=== PATIENT | male | born 1950 | race Caucasian/White ===

== ENCOUNTER → 2016-08-29 | Outpatient (CLI) | payer MEDICARE, OTHER ==
[2016-08-29 13:02] LABS: Blood Urea Nitrogen 16 mg/dL (9-20); Non-African American GFR(MDRD) >60 (>60 ml/min/1.73 sqM)
--- NOTE | 2016-08-29 13:33 | CT ---
EXAMINATION TYPE: CT brain w con DATE OF EXAM: 08/29/2016 1:28 PM COMPARISON: NONE INDICATION: headache DLP: 999.8 mGycm, Automated exposure control for dose reduction was used. CONTRAST: [address] of the brain is performed utilizing 3 mm thick sections through the posterior fossa and 3 mm thick sections through the remaining calvarium. Study is performed within 24 hours of arrival to the hosp [facility]. No abnormal hyperdensity is present to suggest an acute intracranial hemorrhage. No mass lesion is evident. No acute infarcts are evident. Ventricles and sulci are appropriate for the patient age. Paranasal sinuses and mastoid air cells within the [id number] are clear. No suspicious enhancement is evident. IMPRESSIONS: 1. No acute intracranial process.
== END | disposition home or self-care (01) ==
LOC: RADCTMAIN 12:21
PROVIDERS: ATTEND Internal Medicine
DX: R51 Headache (principal)
CPT/HCPCS: 82565; 84520; 70460; 36415; Q9967

== ENCOUNTER 2017-05-26 08:52 | Emergency (ER) | payer MEDICARE, OTHER ==
[2017-05-26 09:26] VITALS: TEMP 97.8
[2017-05-26] MEDS ORDERED: HYDROcodone/APAP 10-325MG 1 EACH TAB PO ONE (10:15)
--- NOTE | 2017-05-26 11:11 | XR ---
EXAMINATION TYPE: XR elbow complete RT DATE OF EXAM: 05/26/2017 CLINICAL HISTORY: pain TECHNIQUE: Frontal, lateral and oblique images of the right elbow are obtained. COMPARISON: None. FINDINGS: There is no acute fracture/dislocation evident of the elbow. No abnormal fat pad signs ar e seen. The overlying soft tissue appears unremarkable. IMPRESSION: There is no acute fracture or dislocation of the elbow. ICD 10 NO FRACTURE, INITIAL EVALUATION
--- NOTE | 2017-05-26 11:24 | ED ---
Trauma HPI - General Chief Complaint: Extremity Injury, Upper Stated Complaint: RT ARM PAIN Time Seen by Provider: 05/26/17 10:11 Source: patient Mode of arrival: ambulatory Limitations: no limitations - History of Present Illness Initial Comments: Patient presents with an injury to the right elbow. He states he bumped his elbow. He has no loss of function of the extremity. He has no numbness or tingling in the hands. He has no weakness. He has no chest pain or pressure. He has no shortness of breath or dyspnea. He has no palpitations. - Related Data Home Medications Medication Instructions Recorded Confirmed Escitalopram [Lexapro] 20 mg PO DAILY 12/03/13 05/26/17 Ranitidine HCl [Zantac] 150 mg PO BID 12/03/13 05/26/17 Simvastatin [Zocor] 40 mg PO HS 12/03/13 05/26/17 metFORMIN HCL [Glucophage] 500 mg PO BID 12/03/13 05/26/17 Cyclobenzaprine [Flexeril] 10 mg PO TID 05/26/17 05/26/17 Diazepam [Valium] 5 mg PO HS 05/26/17 05/26/17 Previous Rx's Medication Instructions Recorded Metoprolol Tartrate [Lopressor] 12.5 mg PO BID #30 tab 04/21/14 Allergies Allergy/AdvReac Type Severity Reaction Status Date / Time No Known Allergies Allergy Verified 05/26/17 09:33 Review of Systems ROS Statement: Those systems with pertinent positive or pertinent negative responses have been documented in the HPI. ROS Other: All systems not noted in ROS Statement are negative. Past Medical History Past Medical History: Coronary Artery Disease (CAD), Diabetes Mellitus, GERD/ Reflux, Hyperlipidemia, Musculoskeletal Disorder Additional Past Medical History / Comment(s): MIGRAINES, PAST HX SEVERAL CONCUSIIONS, History of Any Multi-Drug Resistant Organisms: None Reported Past Surgical History: Back Surgery, Heart Catheterization With Stent, Orthopedic Surgery Additional Past Surgical History / Comment(s): left and right rotator cuff, LOWER BACK LASER SX(NERVES BURNED) Past Anesthesia/Blood Transfusion Reactions: No Reported Reaction Date of Last Stent Placement:: unsure Past Psychological History: Depression Smoking Status: Former smoker Past Alcohol Use History: Occasional Past Drug Use History: Marijuana - Past Family History Father Family Medical History: Dementia Additional Family Medical History / Comment(s): AT AGE 78 COMPLICATIONS FROM ALZHIEMERS Mother Family Medical History: Dementia Additional Family Medical History / Comment(s): AT AGE 90'S General Exam Limitations: no limitations General appearance: alert, in no apparent distress Respiratory exam: Absent: respiratory distress Extremities exam: Present: tenderness Back exam: Present: normal inspection Neurological exam: Present: alert, oriented X3, CN II-XII intact Psychiatric exam: Present: normal affect, normal mood Skin exam: Present: warm, dry, intact, normal color. Absent: rash Course Vital Signs 05/26/17 09:24 Temperature 97.8 F Pulse Rate 82 Respiratory 18 Rate Blood Pressure 144/92 O2 Sat by Pulse 97 Oximetry Medical Decision Making - Medical Decision Making Patient presents with an elbow injury. He is neurovascularly intact. X-rays are negative. He is feeling better after pain medication. He is stable for discharge. Disposition Clinical Impression: Elbow pain, right Disposition: HOME SELF-CARE Condition: Good Instructions: Elbow Bursitis (ED) Referrals: Sagar Aldridge MD [Primary Care Provider] - 1-2 days Torsten Turcios MD [Medical Doctor] - 1-2 days
[2017-05-26 11:34] VITALS: BP 162/91; PULSE 76; RESP 16
== END 2017-05-26 11:34 | disposition home or self-care (01) ==
LOC: EC 08:52
DX: M25.521 Pain in right elbow (principal); E11.9 Type 2 diabetes mellitus without complications; K21.9 Gastro-esophageal reflux disease without esophagitis; E78.5 Hyperlipidemia, unspecified; F32.9 Major depressive disorder, single episode, unspecified; Z87.891 Personal history of nicotine dependence; Z79.84 Long term (current) use of oral hypoglycemic drugs; Z79.899 Other long term (current) drug therapy; W22.8XXA Striking against or struck by other objects, initial encounter
CPT/HCPCS: 99283

== ENCOUNTER 2018-05-19 15:59 | Inpatient (IN) | payer MEDICARE, OTHER ==
[2018-05-19 16:28] LABS: Glucose,Whole Blood 136 mg/dL (75-99)
[2018-05-19] MEDS ORDERED: SODIUM CHLORIDE 0.9% 1,000 ML IV STA (16:31)
[2018-05-19] MEDS ORDERED: SODIUM CHLORIDE 0.9% 500 ML 500 ML IV STA (16:31)
--- NOTE | 2018-05-19 16:39 | ED ---
Neuro HPI - General Chief Complaint: Neuro Symptoms/Deficit Stated Complaint: POSS CVA Time Seen by Provider: 05/19/18 16:18 Source: patient, family, RN notes reviewed Mode of arrival: wheelchair Limitations: no limitations - History of Present Illness Is the patient presenting with stroke symptoms?: Yes Initial Comments: This is a 66-year-old male with a history of CVA in the past also history of diabetes who is on no medications who apparently woke up this morning with some difficulty with speech slurred speech. He also states he numbness or tingling to his left upper extremity. His family's been washing his truck today and they thought this was perhaps secondary to his blood sugar being too low though they have not monitored it. He wasn't medication and passes states he is not taking any now is he thought his medication was hurting him he quit taking it. As a complains some vague left-sided chest pain nonspecific in nature and mild does not seem to get any worse or better with movement or positional changes he' s had no nausea vomiting. Additionally he's been having headaches. Again nonspecific is unable to quantify or qualify the pain. No blurry vision no focal weakness to his upper or lower extremities no other symptoms reported no other modifying factors at this time - Related Data Home Medications: Home Medications Medication Instructions Recorded Confirmed No Known Home Medications 05/19/18 05/19/18 Allergies/Adverse Reactions: Allergies Allergy/AdvReac Type Severity Reaction Status Date / Time No Known Allergies Allergy Verified 05/19/18 16:27 Review of Systems ROS Statement: Those systems with pertinent positive or pertinent negative responses have been documented in the HPI. ROS Other: All systems not noted in ROS Statement are negative. General Exam - General Exam Comments Initial Comments: This is a well-developed well-nourished awake alert oriented 3 male who does demonstrate some difficulty with speech Limitations: no limitations General appearance: alert, in no apparent distress Head exam: Present: atraumatic, normocephalic, normal inspection Eye exam: Present: normal appearance, PERRL, EOMI. Absent: scleral icterus, conjunctival injection, periorbital swelling ENT exam: Present: mucous membranes dry Neck exam: Present: normal inspection, tenderness (Some tenderness palpation of the left paraspinous muscles no spinous process tenderness.). Absent: meningismus, lymphadenopathy Respiratory exam: Present: normal lung sounds bilaterally. Absent: respiratory distress, wheezes, rales, rhonchi, stridor, chest wall tenderness Cardiovascular Exam: Present: regular rate, normal rhythm, normal heart sounds. Absent: systolic murmur, diastolic murmur, rubs, gallop, clicks GI/Abdominal exam: Present: soft, normal bowel sounds. Absent: distended, tenderness, guarding, rebound, rigid Extremities exam: Present: normal inspection, full ROM, normal capillary refill , other (Equal principal systems engineer strength bilaterally). Absent: tenderness, pedal edema, joint swelling, calf tenderness Back exam: Present: normal inspection Neurological exam: Present: alert, oriented X3, CN II-XII intact, motor sensory deficit (Some difficulty with speech noted) Psychiatric exam: Present: normal mood, flat affect Skin exam: Present: warm, dry, intact, normal color. Absent: rash Stroke MDM - Lab Data Result diagrams: 05/19/18 16:35 05/19/18 16:35 Lab Results 05/19/18 05/19/18 05/19/18 Range/Units 16:26 16:35 16:35 WBC 10.6 (3.8-10.6) k/uL RBC 5.12 (4.30-5.90) m/uL Hgb 17.0 (13.0-17.5) gm/dL Hct 47.1 (39.0-53.0) % MCV 92.0 (80.0-100.0) fL MCH 33.2 (25.0-35.0) pg MCHC 36.1 (31.0-37.0) g/dL RDW 12.7 (11.5-15.5) % Plt Count 250 (150-450) k/uL Neutrophils % 56 % Lymphocytes % 33 % Monocytes % 6 % Eosinophils % 3 % Basophils % 1 % Neutrophils # 5.9 (1.3-7.7) k/uL Lymphocytes # 3.5 (1.0-4.8) k/uL Monocytes # 0.6 (0-1.0) k/uL Eosinophils # 0.3 (0-0.7) k/uL Basophils # 0.1 (0-0.2) k/uL PT (9.0-12.0) sec INR (<1.2) APTT (22.0-30.0) sec Sodium (137-145) mmol/L Potassium (3.5-5.1) mmol/L Chloride (98-107) mmol/L Carbon Dioxide (22-30) mmol/L Anion Gap mmol/L BUN (9-20) mg/dL Creatinine (0.66-1.25) mg/dL Est GFR (CKD-EPI)AfAm (>60 ml/min/1.73 sqM) Est GFR (CKD-EPI)NonAf (>60 ml/min/1.73 sqM) Glucose (74-99) mg/dL POC Glucose (mg/dL) 136 H (75-99) mg/dL POC Glu Bleach Chlorinator ID Maribel Yan Calcium (8.4-10.2) mg/dL Magnesium (1.6-2.3) mg/dL Total Bilirubin (0.2-1.3) mg/dL AST (17-59) U/L ALT (21-72) U/L Alkaline Phosphatase (38-126) U/L Total Creatine Kinase 98 (55-170) U/L CK-MB (CK-2) 1.1 (0.0-2.4) ng/mL CK-MB (CK-2) Rel Index 1.1 Troponin I <0.012 (0.000-0.034) ng/mL Total Protein (6.3-8.2) g/dL Albumin (3.5-5.0) g/dL Amylase (30-110) U/L Lipase (23-300) U/L Urine Color Urine Appearance (Clear) Urine pH (5.0-8.0) Ur Specific [place] (1.001-1.035) Urine Protein (Negative) Urine Glucose (UA) (Negative) Urine Ketones (Negative) Urine Blood (Negative) Urine Nitrite (Negative) Urine Bilirubin (Negative) Urine Urobilinogen (<2.0) mg/dL Ur Leukocyte Esterase (Negative) Acetone, Qual (Negative) 05/19/18 05/19/18 05/19/18 Range/Units 16:35 16:35 17:37 WBC (3.8-10.6) k/uL RBC (4.30-5.90) m/uL Hgb (13.0-17.5) gm/dL Hct (39.0-53.0) % MCV (80.0-100.0) fL MCH (25.0-35.0) pg MCHC (31.0-37.0) g/dL RDW (11.5-15.5) % Plt Count (150-450) k/uL Neutrophils % % Lymphocytes % % Monocytes % % Eosinophils % % Basophils % % Neutrophils # (1.3-7.7) k/uL Lymphocytes # (1.0-4.8) k/uL Monocytes # (0-1.0) k/uL Eosinophils # (0-0.7) k/uL Basophils # (0-0.2) k/uL PT 9.5 (9.0-12.0) sec INR 1.0 (<1.2) APTT 23.3 (22.0-30.0) sec Sodium 138 (137-145) mmol/L Potassium 4.8 (3.5-5.1) mmol/L Chloride 106 (98-107) mmol/L Carbon Dioxide 23 (22-30) mmol/L Anion Gap 9 mmol/L BUN 12 (9-20) mg/dL Creatinine 0.81 (0.66-1.25) mg/dL Est GFR (CKD-EPI)AfAm >90 (>60 ml/min/1.73 sqM) Est GFR (CKD-EPI)NonAf >90 (>60 ml/min/1.73 sqM) Glucose 122 H (74-99) mg/dL POC Glucose (mg/dL) (75-99) mg/dL POC Glu Bleach Chlorinator ID Calcium 9.8 (8.4-10.2) mg/dL Magnesium 2.0 (1.6-2.3) mg/dL Total Bilirubin 0.6 (0.2-1.3) mg/dL AST 23 (17-59) U/L ALT 28 (21-72) U/L Alkaline Phosphatase 53 (38-126) U/L Total Creatine Kinase (55-170) U/L CK-MB (CK-2) (0.0-2.4) ng/mL CK-MB (CK-2) Rel Index Troponin I (0.000-0.034) ng/mL Total Protein 7.4 (6.3-8.2) g/dL Albumin 4.4 (3.5-5.0) g/dL Amylase 55 (30-110) U/L Lipase 78 (23-300) U/L Urine Color Light Yellow Urine Appearance Clear (Clear) Urine pH 7.5 (5.0-8.0) Ur Specific [place] 1.009 (1.001-1.035) Urine Protein Negative (Negative) Urine Glucose (UA) Negative (Negative) Urine Ketones Negative (Negative) Urine Blood Negative (Negative) Urine Nitrite Negative (Negative) Urine Bilirubin Negative (Negative) Urine Urobilinogen <2.0 (<2.0) mg/dL Ur Leukocyte Esterase Negative (Negative) Acetone, Qual Negative (Negative) - NIH Stroke Scale 1a. Level of Consciousness: (0) alert 1b. LOC Questions: (0) answers correctly 1c. LOC Commands: (0) performs tasks correctly 2. Best Gaze: (0) normal 3. Visual: (0) no visual loss 4. Facial Palsy: (0) normal symmetrical movement 5a. Motor Arm Left: (0) no drift 5b. Motor Arm Right: (0) no drift 6a. Motor Leg Left: (0) no drift 6b. Motor Leg Right: (0) no drift 7. Limb Ataxia: (0) absent 8. Sensory: (0) normal 9. Best Language: (1) mild/moderate aphasia 10. Dysarthria: (0) normal 11. Extinction/Inattention: (0) no abnormality - Thrombolytic Inclusion/Exclusion Thrombolytic Exclusion Criteria: Onset of Symptoms Unknown - Medical Decision Making I did review the EKG shows normal sinus rhythm a 78. Interval 168 QRS duration 106 QT since QTC 370/4:30 left exodeviation old inferior changes. No acute ST- T wave changes. I did reevaluate patient several occasions no changes did discuss case with Dr. Aldridge the patient be admitted with neurological consultation the patient is currently not a candidate for [employer] or intervention. Past Medical History Past Medical History: Coronary Artery Disease (CAD), Diabetes Mellitus, GERD/ Reflux, Hyperlipidemia, Musculoskeletal Disorder Additional Past Medical History / Comment(s): MIGRAINES, PAST HX SEVERAL CONCUSIIONS History of Any Multi-Drug Resistant Organisms: None Reported Past Surgical History: Back Surgery, Heart Catheterization With Stent, Orthopedic Surgery Additional Past Surgical History / Comment(s): left and right rotator cuff, LOWER BACK LASER SX(NERVES BURNED) Past Anesthesia/Blood Transfusion Reactions: No Reported Reaction Date of Last Stent Placement:: unsure Past Psychological History: Depression Smoking Status: Former smoker Past Alcohol Use History: Occasional Past Drug Use History: Marijuana - Past Family History Father Family Medical History: Dementia Additional Family Medical History / Comment(s): AT AGE 78 COMPLICATIONS FROM ALZHIEMERS Mother Family Medical History: Dementia Additional Family Medical History / Comment(s): AT AGE 90'S Course Vital Signs 05/19/18 05/19/18 16:01 17:21 Temperature 97.7 F Pulse Rate 89 76 Respiratory 18 16 Rate Blood Pressure 128/75 125/89 O2 Sat by Pulse 98 96 Oximetry Critical Care Time Critical Care Time: Yes Critical Care Time: 31 minutes of critical care time which includes initial presentation with history physical labs x-rays several reevaluation the patient discussed with the patient and family regarding findings discussed with the main physician admission orders and documentation of the above Disposition Clinical Impression: Cerebrovascular accident Disposition: ADMITTED IP TO THIS [facility] Condition: Stable Referrals: None,Stated [Primary Care Provider] - 1-2 days
[2018-05-19 17:00] LABS: Partial Thromboplastin Time 23.3 sec (22.0-30.0); Prothrombin Time 9.5 sec (9.0-12.0)
[2018-05-19 17:03] LABS: ALT 28 U/L (21-72); AST 23 U/L (17-59); Albumin 4.4 g/dL (3.5-5.0); Alkaline Phosphatase 53 U/L (38-126); Amylase 55 U/L (30-110); Anion Gap 9 mmol/L; Blood Urea Nitrogen 12 mg/dL (9-20); Calcium 9.8 mg/dL (8.4-10.2); Carbon Dioxide 23 mmol/L (22-30); Chloride 106 mmol/L (98-107); Glucose 122 mg/dL (74-99); Lipase 78 U/L (23-300); Potassium 4.8 mmol/L (3.5-5.1); Sodium 138 mmol/L (137-145); Total Bilirubin 0.6 mg/dL (0.2-1.3); Total Protein 7.4 g/dL (6.3-8.2)
[2018-05-19 17:09] LABS: Creatine Kinase 98 U/L (55-170)
--- NOTE | 2018-05-19 17:09 | XR ---
EXAMINATION TYPE: XR chest 2V DATE OF EXAM: 05/19/2018 COMPARISON: Chest x-ray April 20, 2014. HISTORY: Altered mental status and weakness. TECHNIQUE: Frontal and lateral views of the chest are obtained. FINDINGS: There is chronic parenchymal change without suspicious focal air space opacity, pleural ef fusion, or pneumothorax seen. The cardiac silhouette size is stable and within normal limits. The osseous structures are intact. IMPRESSION: Chronic changes without acute pulmonary process. No significant change from prior.
[2018-05-19 17:16] LABS: Basophils # (A) 0.1 k/uL (0-0.2); Basophils % (A) 1 %; Eosinophils # (A) 0.3 k/uL (0-0.7); Eosinophils % (A) 3 %; HCT 47.1 % (39.0-53.0); Lymphocytes # (A) 3.5 k/uL (1.0-4.8); Lymphocytes % (A) 33 %; MCH 33.2 pg (25.0-35.0); MCHC 36.1 g/dL (31.0-37.0); Monocytes # (A) 0.6 k/uL (0-1.0); Monocytes % (A) 6 %; Neutrophils # (A) 5.9 k/uL (1.3-7.7); Neutrophils % (A) 56 %; Platelet Count 250 k/uL (150-450); RBC 5.12 m/uL (4.30-5.90); RDW 12.7 % (11.5-15.5); WBC 10.6 k/uL (3.8-10.6)
--- NOTE | 2018-05-19 17:19 | CT ---
EXAMINATION TYPE: CT brain wo con DATE OF EXAM: 05/19/2018 HISTORY: Neuro deficits per order. Altered mental status. CT DLP: 1020.4 mGycm. Automated Exposure Control for Dose Reduction was Utilized. TECHNIQUE: CT scan of the head is performed without contrast. COMPARISON: CT brain August 29, 2016. MRI brain December 20, 2015. FINDINGS: There is no acute intracranial hemorrhage or midline shift identified. There is diffuse v entricular and sulcal prominence consistent with diffuse age-related cerebral atrophy. There is low- attenuation in the periventricular white matter consistent with chronic small vessel ischemic change. The globes are intact and the visualized sinuses are clear. IMPRESSION: No acute intracranial hemorrhage or midline shift. There is mild to minimal diffuse age -related cerebral atrophy and chronic small vessel ischemic change redemonstrated. No significant thompson nge from prior CT or MRI.
[2018-05-19 17:22] LABS: Creatine Kinase MB 1.1 ng/mL (0.0-2.4); Troponin I <0.012 ng/mL (0.000-0.034)
[2018-05-19 17:45] LABS: Appearance,Urine Clear (Clear); Bilirubin,Urine Negative (Negative); Blood,Urine Negative (Negative); Color,Urine Light Yellow; Glucose,Urine (UA) Negative (Negative); Ketones,Urine Negative (Negative); Leukocyte Esterase,Urine Negative (Negative); Nitrite,Urine Negative (Negative); PH, Urine 7.5 (5.0-8.0); Protein,Urine Negative (Negative); Specific Gravity,Urine 1.009 (1.001-1.035); Urobilinogen,Urine <2.0 mg/dL (<2.0)
[2018-05-19 20:54] LABS: Glucose,Whole Blood 120 mg/dL (75-99)
--- NOTE | 2018-05-19 22:07 | P.CNNES ---
History of Present Illness Consult date: 05/19/18 History of Present Illness: The patient is a 67-year-old right-handed white male who states at 8:30 this morning he developed slurred speech and left arm tingling. He was at a mandaeism function at the time and his daughter called her and reported what happened. They felt that it might of been due to hypoglycemia and they gave him some candy which did not help. He will K got home and he slept for a few hours his symptoms persisted so they brought him to the emergency room. The patient states he is not having the tingling anymore and his slurred speech went away. A CAT scan of the brain in the emergency room which showed small vessel disease. Apparently he has had a stroke in the past but he is not sure what symptoms that consisted of and how long ago it was. Patient has not had a primary care physician for over a year and has not been taking medications despite of being a diabetic and has coronary artery disease hyperlipidemia and GERD. Patient also describes some left chest pain. Review of Systems Constitutional: Denies chills, Denies fever Eyes: denies blurred vision, denies pain Ears, nose, mouth and throat: Denies headache, Denies sore throat Cardiovascular: Denies chest pain, Denies shortness of breath Respiratory: Denies cough Gastrointestinal: Denies abdominal pain, Denies diarrhea, Denies nausea, Denies vomiting Musculoskeletal: Denies myalgias Neurological: Denies numbness, Denies weakness Psychiatric: Denies anxiety, Denies depression Past Medical History Past Medical History: Coronary Artery Disease (CAD), Diabetes Mellitus, GERD/ Reflux, Hyperlipidemia, Musculoskeletal Disorder Additional Past Medical History / Comment(s): MIGRAINES, PAST HX SEVERAL CONCUSIIONS History of Any Multi-Drug Resistant Organisms: None Reported Past Surgical History: Back Surgery, Heart Catheterization With Stent, Orthopedic Surgery Additional Past Surgical History / Comment(s): left and right rotator cuff, LOWER BACK LASER SX(NERVES BURNED) Past Anesthesia/Blood Transfusion Reactions: No Reported Reaction Date of Last Stent Placement:: unsure Past Psychological History: Depression Additional Psychological History / Comment(s): pt is a Smoking Status: Former smoker Past Alcohol Use History: Occasional Additional Past Alcohol Use History / Comment(s): STARTED SMOKEING AT AGE 11- WORKED UP TO 5 [employer], QUIT 1995, 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 Past Drug Use History: Marijuana Additional Drug Use History / Comment(s): states uses marijuana daily since 1968 , LAST USED today (05/19/2018) - Past Family History Father Family Medical History: Dementia Additional Family Medical History / Comment(s): AT AGE 78 COMPLICATIONS FROM ALZHIEMERS Mother Family Medical History: Dementia Additional Family Medical History / Comment(s): AT AGE 90'S Medications and Allergies Home Medications Medication Instructions Recorded Confirmed Type No Known Home Medications 05/19/18 05/19/18 History Allergies Allergy/AdvReac Type Severity Reaction Status Date / Time No Known Allergies Allergy Verified 05/19/18 16:27 Physical Examination - Vital Signs Vital Signs: Vital Signs Temp Pulse Pulse Resp BP BP Pulse Ox 05/19/18 20:00 98.2 F 71 17 135/91 05/19/18 18:51 97.9 F 73 18 129/89 96 05/19/18 17:21 76 16 125/89 96 05/19/18 16:01 97.7 F 89 18 128/75 98 Intake and Output 05/19/18 05/19/18 05/19/18 06:59 14:59 22:59 Other: Weight 108.862 kg - Constitutional General appearance: obese - EENT EENT: PERRL, hearing intact, vision intact - Respiratory Respiratory: lungs clear - Cardiovascular Cardiovascular: regular rate, normal S1, normal S2 - Neurologic Neurologic examination: Mental status: He was awake alert and oriented. His speech was fluent. There was no a aphasia or dysarthria. Cranial nerves II through XII: Grossly intact Motor examination: No focal weakness Sensory examination: Intact to light touch Deep tendon reflexes: 1+ and symmetric Gait: Not tested Results - Laboratory Findings CBC and BMP: 05/19/18 16:35 05/19/18 16:35 Abnormal Lab Findings: Abnormal Labs 05/19/18 05/19/18 05/19/18 16:26 16:35 20:51 Glucose 122 H POC Glucose (mg/dL) 136 H 120 H Assessment and Plan (1) TIA (transient ischemic attack) Current Visit: Yes Status: Acute SNOMED Code(s): 104922070 (2) Chest pain Current Visit: No Status: Acute SNOMED Code(s): 96082733 (3) Noncompliance with medication regimen Current Visit: Yes Status: Acute Code(s): Z91.14 - PATIENT'S OTHER NONCOMPLIANCE WITH MEDICATION REGIMEN SNOMED Code(s): 749293973 Plan: The patient is a 67-year-old man with history of multiple medical problems was not been taking his medications for the past 1 year. He presents with slurred speech and left arm tingling which has resolved. The patient may have had a TIA. His CAT scan of the brain showed small vessel disease. Recommend carotid ultrasound and echocardiogram. Also recommend antiplatelet therapy with aspirin.
[2018-05-19] MEDS: ATORVASTATIN 80 MG TAB PO SCH (22:11)
[2018-05-19] MEDS: INSULIN ASPART 100 UNIT/ML 1 ML 10 ML VIAL SQ SCH (22:11)
[2018-05-19] MEDS: SODIUM CHLORIDE 0.9% 1,000 ML IV SCH (22:13)
[2018-05-19] MEDS: FAMOTIDINE 20 MG TAB PO SCH (23:46)
[2018-05-19 23:51] LABS: Cholesterol 290 mg/dL (<200); HDL Cholesterol 47 mg/dL (40-60); LDL Cholesterol,Calculated 195 mg/dL (0-99); Triglycerides 241 mg/dL (<150)
[2018-05-20 04:12] LABS: Hemoglobin A1C 7.4 % (4.0-6.0)
[2018-05-20] MEDS: SODIUM CHLORIDE 0.9% 1,000 ML IV SCH ×2 (05:48→18:15)
[2018-05-20 06:15] LABS: Glucose,Whole Blood 169 mg/dL (75-99)
[2018-05-20] MEDS: INSULIN ASPART 100 UNIT/ML 1 ML 10 ML VIAL SQ SCH ×4 (06:35→20:54)
[2018-05-20 07:57] LABS: Basophils # (A) 0.1 k/uL (0-0.2); Basophils % (A) 1 %; Eosinophils # (A) 0.4 k/uL (0-0.7); Eosinophils % (A) 5 %; HCT 48.9 % (39.0-53.0); HGB 16.6 gm/dL (13.0-17.5); Lymphocytes # (A) 3.2 k/uL (1.0-4.8); Lymphocytes % (A) 40 %; MCH 32.2 pg (25.0-35.0); MCHC 33.9 g/dL (31.0-37.0); MCV 94.9 fL (80.0-100.0); Monocytes # (A) 0.5 k/uL (0-1.0); Monocytes % (A) 6 %; Neutrophils # (A) 3.6 k/uL (1.3-7.7); Neutrophils % (A) 46 %; Platelet Count 237 k/uL (150-450); RBC 5.16 m/uL (4.30-5.90); RDW 12.9 % (11.5-15.5); WBC 7.9 k/uL (3.8-10.6)
[2018-05-20 08:29] LABS: Anion Gap 7 mmol/L; Blood Urea Nitrogen 12 mg/dL (9-20); Calcium 9.2 mg/dL (8.4-10.2); Carbon Dioxide 20 mmol/L (22-30); Chloride 109 mmol/L (98-107); Glucose 134 mg/dL (74-99); Potassium 4.8 mmol/L (3.5-5.1); Sodium 136 mmol/L (137-145)
[2018-05-20] MEDS: CLOPIDOGREL 75 MG TAB PO SCH (08:59)
--- NOTE | 2018-05-20 09:44 | ECHOF ---
Referral Reason:Thrombus MEASUREMENTS -------- HEIGHT: 167.6 cm WEIGHT: 98.4 kg BP: 125/65 RVIDd: 3.3 cm (< 3.3) IVSd: 1.2 cm (0.6 - 1.1) LVIDd: 4.1 cm (3.9 - 5.3) LVPWd: 1.2 cm (0.6 - 1.1) IVSs: 1.6 cm LVIDs: 3.2 cm LVPWs: 1.7 cm LA Diam: 3.6 cm (2.7 - 3.8) LAESV Index (A-L): 23.98 ml/m Ao Diam: 3.8 cm (2.0 - 3.7) AV Cusp: 0.9 cm (1.5 - 2.6) EPSS: 1.0 cm MV E Phillip: 0.75 m/s MV DecT: 322 ms MV A Phillip: 0.93 m/s MV E/A Ratio: 0.81 AV maxP.38 mmHg AV meanP.71 mmHg AR PHT: 900 ms MV EF SLOPE: 71.90 mm/s (70 - 150) MV EXCURSION: 1.56 cm (> 18.000) FINDINGS -------- Sinus rhythm. This was a technically adequate study. The left ventricular size is normal. There is borderline concentric left ventricular hypertrophy. Overall left ventricular systolic function is normal with, an EF between 55 - 60 %. The right ventricle is mildly enlarged. Normal LA size by volume 22+/-6 ml/m2. The right atrium is normal in size. There is mild aortic valve sclerosis. There is mild aortic regurgitation. There is mild aortic st enosis present. Peak/mean gradient across the Aortic Valve is 17.38mmHg / 8.71mmHg. There is trace mitral regurgitation. The tricuspid valve appears structurally normal. The pulmonic valve was not well visualized. The aortic root is dilated measuring 3.8cm. IVC Not well visulized. There is no pericardial effusion. CONCLUSIONS -------- 1. Sinus rhythm. 2. This was a technically adequate study. 3. The left ventricular size is normal. 4. There is borderline concentric left ventricular hypertrophy. 5. Overall left ventricular systolic function is normal with, an EF between 55 - 60 %. 6. The right ventricle is mildly enlarged. 7. Normal LA size by volume 22+/-6 ml/m2. 8. The right atrium is normal in size. 9. There is mild aortic valve sclerosis. 10. There is mild aortic regurgitation. 11. There is mild aortic stenosis present. 12. Peak/mean gradient across the Aortic Valve is 17.38mmHg / 8.71mmHg. 13. There is trace mitral regurgitation. 14. The tricuspid valve appears structurally normal. 15. The pulmonic valve was not well visualized. 16. The aortic root is dilated measuring 3.8cm. 17. IVC Not well visulized. 18. There is no pericardial effusion. TOOLING SPECIALIST: GENA Eller
--- NOTE | 2018-05-20 10:06 | US ---
EXAMINATION TYPE: US carotid duplex BILAT DATE OF EXAM: 05/19/2018 COMPARISON: NONE CLINICAL HISTORY: Stenosis. Slurred speech. EXAM MEASUREMENTS: RIGHT: Peak Systolic Velocity (PSV) cm/sec ----- Right CCA: 49.3 ----- Right ICA: 76.9 ----- Right ECA: 65.3 ICA/CCA ratio: 1.6 RIGHT: End Diastole cm/sec ----- Right CCA: 14.4 ----- Right ICA: 31.8 ----- Right ECA: 11.5 LEFT: Peak Systolic Velocity (PSV) cm/sec ----- Left CCA: 64.8 ----- Left ICA: 90.3 ----- Left ECA: 85.4 ICA/CCA ratio: 1.4 LEFT: End Diastole cm/sec ----- Left CCA: 17.5 ----- Left ICA: 40.2 ----- Left ECA: 14.4 VERTEBRALS (direction of flow): Right Vertebral: Antegrade Left Vertebral: Antegrade Rhythm: Normal No significant stenosis seen IMPRESSION: 1. No significant hemodynamic stenosis. 2. Intimal thickening and atherosclerotic plaque bilaterally. Criteria for Assigning % of Stenosis / Diameter reduction (Estimation based on the indirect measurements of the internal carotid artery velocities (ICA PSV). 1. Normal (no stenosis)=ICA PSV < 125 cm/s: ratio < 2.0: ICA EDV<40 cm/s. 2. Less than 50% stenosis=ICA PSV < 125 cm/s: ratio < 2.0: ICA EDV<40 cm/s. 3. 50 to 69% stenosis=ICA PSV of 125 to 230 cm/s: ration 2.0 ? 4.0: ICA EDV 40-100 cm/s. 4. Greater than 70% stenosis to near occlusion= ICA PSV > 230 cm/s: ratio > 4.0: ICA EDV > 100 cm/s. 5. Near occlusion= ICA PSV velocities may be low or undetectable: variable ratio and ICA EDV. 6. Total occlusion=unable to detect flow.
--- NOTE | 2018-05-20 10:36 | P.HPIM ---
History of Present Illness H&P Date: 05/20/18 Chief Complaint: Slurred speech and left extremity numbness This is a 67-year-old male who presented to the emergency room with complaints of slurred speech and left extremity numbness. Patient states he has not followed with primary care in quite some time. Patient does state he seen Dr. Aldridge in the past. Patient states that yesterday afternoon he was at [employer] and noticed he was not able to speak clear sentences. Patient's family also noted the changes. Patient also experienced left arm numbness. Patient was brought into the emergency room family members. Patient has no past medical history of coronary artery disease, diabetes mellitus, GERD, hyperlipidemia, depression and smokes marijuana daily. patient states he stopped taking all medications in the past year. Head CT completed showing no acute intracranial hemorrhage or midline shift. There is mild to minimal diffuse age-related cerebral atrophy and chronic small vessel ischemic changes redemonstrated. No significant change from prior CT or MRI. X-ray completed showing chronic changes without acute pulmonary process. Carotid Doppler completed showing no significant hemodynamic stenosis. Intimal thickening and atherosclerotic plaque bilaterally. EEG completed showing normal sinus rhythm. Left axis deviation. Inferior infarct age undetermined. At this time patient's symptoms have resolved. No signs of any no deficits noted. Patient denies chest pain or shortness of breath. Patient denies nausea vomiting diarrhea. Patient denies any urinary burning and frequency. Review of Systems Please refer to HPI otherwise unremarkable Past Medical History Past Medical History: Coronary Artery Disease (CAD), Diabetes Mellitus, GERD/ Reflux, Hyperlipidemia, Musculoskeletal Disorder Additional Past Medical History / Comment(s): MIGRAINES, PAST HX SEVERAL CONCUSIIONS History of Any Multi-Drug Resistant Organisms: None Reported Past Surgical History: Back Surgery, Heart Catheterization With Stent, Orthopedic Surgery Additional Past Surgical History / Comment(s): left and right rotator cuff, LOWER BACK LASER SX(NERVES BURNED) Past Anesthesia/Blood Transfusion Reactions: No Reported Reaction Date of Last Stent Placement:: unsure Past Psychological History: Depression Additional Psychological History / Comment(s): pt is a Smoking Status: Former smoker Past Alcohol Use History: Occasional Additional Past Alcohol Use History / Comment(s): STARTED SMOKEING AT AGE 11- WORKED UP TO [employer], QUIT 1995, 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 Past Drug Use History: Marijuana Additional Drug Use History / Comment(s): states uses marijuana daily since 1969 , LAST USED today (05/19/2018) - Past Family History Father Family Medical History: Dementia Additional Family Medical History / Comment(s): AT AGE 78 COMPLICATIONS FROM ALZHIEMERS Mother Family Medical History: Dementia Additional Family Medical History / Comment(s): AT AGE 90'S Medications and Allergies Home Medications Medication Instructions Recorded Confirmed Type No Known Home Medications 05/19/18 05/19/18 History Allergies Allergy/AdvReac Type Severity Reaction Status Date / Time No Known Allergies Allergy Verified 05/19/18 16:27 Physical Exam Vitals: Vital Signs Temp Pulse Pulse Resp BP BP Pulse Ox 05/20/18 08:00 98.3 F 67 20 132/82 96 05/20/18 07:34 98.3 F 67 20 132/82 96 05/20/18 05:34 68 17 125/65 05/20/18 04:00 70 18 05/20/18 03:34 98.6 F 70 18 114/70 05/20/18 01:34 80 17 135/62 05/19/18 23:36 82 17 05/19/18 23:29 82 17 120/70 05/19/18 21:34 98.5 F 75 17 114/81 05/19/18 20:34 98.5 F 70 18 120/85 05/19/18 20:00 98.2 F 71 17 135/91 05/19/18 19:45 98.2 F 71 17 130/90 95 05/19/18 18:51 97.9 F 73 18 129/89 96 05/19/18 17:21 76 16 125/89 96 05/19/18 16:01 97.7 F 89 18 128/75 98 Intake and Output 05/19/18 05/20/18 05/20/18 22:59 06:59 14:59 Intake Total 300 Balance 300 Intake: Oral 300 Other: # Voids 2 Weight 106.8 kg 98.6 kg Head normocephalic Neck supple Lungs clear to auscultation bilaterally no wheezing or crackles Heart regular rate and rhythm S1-S2, no rub or gallop Abdomen is soft nontender nondistended positive bowel sounds no hepatosplenomegaly Extremities no edema Neuro alert and orientated to 3. No signs of slurred speech or facial droop. Patient is alert and oriented 3. Equal strength throughout all extremities Results CBC & Chem 7: 05/20/18 07:00 05/20/18 07:00 Labs: Abnormal Lab Results - Last 24 Hours (Table) 05/19/18 05/19/18 05/19/18 Range/Units 16:26 16:35 16:35 Sodium (137-145) mmol/L Chloride (98-107) mmol/L Carbon Dioxide (22-30) mmol/L Glucose 122 H (74-99) mg/dL POC Glucose (mg/dL) 136 H (75-99) mg/dL Hemoglobin A1c 7.4 H (4.0-6.0) % Triglycerides (<150) mg/dL Cholesterol (<200) mg/dL LDL Cholesterol, Calc (0-99) mg/dL 05/19/18 05/19/18 05/20/18 Range/Units 16:35 20:51 06:13 Sodium (137-145) mmol/L Chloride (98-107) mmol/L Carbon Dioxide (22-30) mmol/L Glucose (74-99) mg/dL POC Glucose (mg/dL) 120 H 169 H (75-99) mg/dL Hemoglobin A1c (4.0-6.0) % Triglycerides 241 H (<150) mg/dL Cholesterol 290 H (<200) mg/dL LDL Cholesterol, Calc 195 H (0-99) mg/dL 05/20/18 Range/Units 07:00 Sodium 136 L (137-145) mmol/L Chloride 109 H (98-107) mmol/L Carbon Dioxide 20 L (22-30) mmol/L Glucose 134 H (74-99) mg/dL POC Glucose (mg/dL) (75-99) mg/dL Hemoglobin A1c (4.0-6.0) % Triglycerides (<150) mg/dL Cholesterol (<200) mg/dL LDL Cholesterol, Calc (0-99) mg/dL Thrombosis Risk Factor Assmnt - Choose All That Apply Any of the Below Risk Factors Present?: No Each Risk Factor Represents 2 Points: Age 61-74 years Other congenital or acquired thrombophilia - If yes, enter type in comment: No Thrombosis Risk Factor Assessment Total Risk Factor Score: 2 Thrombosis Risk Factor Assessment Level: Low Risk Assessment and Plan Assessment: 1. Slurred speech and left arm numbness likely related to transient ischemic attack. Head CT completed showing no acute intracranial hemorrhage or midline shift. There is mild to minimal diffuse age-related cerebral atrophy and chronic small vessel redemonstrated. No significant change from prior CT or MRI. EKG completed showing normal sinus rhythm left axis deviation. Carotid ultrasound completed showing stenosis intimal thickening and plaque bilaterally. Per Neurology maintain patient on anticoagulant therapy with Plavix and aspirin. 2D Echo completed showing an EF 55-60%. PT/OT consult 2. Noncompliance with medication. Patient states he stopped taking all his meds 1 year ago and stopped seeing his primary care provider 3. History of diabetes mellitus. A1c has been ordered 4. History of hyperlipidemia. Patient started on Lipitor 5. History of coronary artery disease 6. History of daily marijuana use 7. history of depression GI prophylaxis Protonix. DVT prophylaxis Lovenox. AM labs have been ordered Continue physical therapy Time with Patient: Greater than 30 (Greater than 60% of the total time spent in counseling and coordination of care. I performed an examination of the patient and discussed their management with the Nurse Practitioner. I have reviewed the Nurse Practitioner's notes and agree with the documented findings and plan of care)
[2018-05-20 10:58] LABS: Glucose,Whole Blood 166 mg/dL (75-99)
[2018-05-20] MEDS: ASPIRIN 325 MG TAB PO SCH (12:47)
[2018-05-20 17:21] LABS: Glucose,Whole Blood 133 mg/dL (75-99)
[2018-05-20] MEDS: FAMOTIDINE 20 MG TAB PO SCH (20:53)
[2018-05-20] MEDS: ATORVASTATIN 80 MG TAB PO SCH (20:53)
[2018-05-20 20:55] LABS: Glucose,Whole Blood 168 mg/dL (75-99)
[2018-05-21] MEDS: SODIUM CHLORIDE 0.9% 1,000 ML IV SCH ×2 (02:00→09:20)
[2018-05-21 06:18] LABS: Basophils # (A) 0.1 k/uL (0-0.2); Basophils % (A) 1 %; Eosinophils # (A) 0.4 k/uL (0-0.7); Eosinophils % (A) 4 %; HCT 52.2 % (39.0-53.0); HGB 17.2 gm/dL (13.0-17.5); Lymphocytes # (A) 3.3 k/uL (1.0-4.8); Lymphocytes % (A) 34 %; MCH 31.2 pg (25.0-35.0); MCHC 32.9 g/dL (31.0-37.0); MCV 94.7 fL (80.0-100.0); Mean Platelet Volume 6.6; Monocytes # (A) 0.5 k/uL (0-1.0); Monocytes % (A) 6 %; Neutrophils # (A) 5.1 k/uL (1.3-7.7); Neutrophils % (A) 53 %; Platelet Count 254 k/uL (150-450); RBC 5.51 m/uL (4.30-5.90); RDW 12.9 % (11.5-15.5); WBC 9.5 k/uL (3.8-10.6)
[2018-05-21 06:19] LABS: Glucose,Whole Blood 171 mg/dL (75-99)
[2018-05-21] MEDS: INSULIN ASPART 100 UNIT/ML 1 ML 10 ML VIAL SQ SCH ×2 (06:24→12:52)
[2018-05-21 06:45] LABS: ALT 25 U/L (21-72); AST 20 U/L (17-59); Alkaline Phosphatase 60 U/L (38-126); Anion Gap 9 mmol/L; Blood Urea Nitrogen 12 mg/dL (9-20); Calcium 9.4 mg/dL (8.4-10.2); Carbon Dioxide 21 mmol/L (22-30); Chloride 107 mmol/L (98-107); Glucose 164 mg/dL (74-99); Potassium 4.9 mmol/L (3.5-5.1); Sodium 137 mmol/L (137-145); Total Bilirubin 0.9 mg/dL (0.2-1.3); Total Protein 7.2 g/dL (6.3-8.2)
[2018-05-21] MEDS ORDERED: ENOXAPARIN 40 MG/0.4 ML SYRINGE SQ SCH (09:00)
[2018-05-21] MEDS ORDERED: LISINOPRIL 5 MG TAB PO SCH (09:00)
[2018-05-21] MEDS: CLOPIDOGREL 75 MG TAB PO SCH (09:20)
[2018-05-21] MEDS: ASPIRIN 325 MG TAB PO SCH (09:20)
[2018-05-21 09:49] VITALS: RESP 20
[2018-05-21 11:58] LABS: Glucose,Whole Blood 132 mg/dL (75-99)
[2018-05-21 13:20] VITALS: BP 132/84; PULSE 74; TEMP 97.7
--- NOTE | 2018-05-21 13:32 | P.DS ---
Providers Date of admission: 05/19/18 18:38 Expected date of discharge: 05/21/18 Attending physician: Sagar Aldridge Consults: 05/19/18 18:35 Consult Physician Routine Consulting Provider: Adan Givens Consult Reason/Comments: CVA Do you want consulting provider notified?: Yes Primary care physician: Stated None Hospital Course: discharge diagnosis 1. Slurred speech and left arm numbness likely related to transient ischemic attack. Head CT completed showing no acute intracranial hemorrhage or midline shift. There is mild to minimal diffuse age-related cerebral atrophy and chronic small vessel redemonstrated. No significant change from prior CT or MRI. EKG completed showing normal sinus rhythm left axis deviation. Carotid ultrasound completed showing stenosis intimal thickening and plaque bilaterally. Per Neurology maintain patient on anticoagulant therapy with Plavix and aspirin. 2D Echo completed showing an EF 55-60%. PT/OT consult. Discharge upon neurology clearance. Symptoms completely resolved. Patient will be DC'd on Plavix and aspirin. 2. Noncompliance with medication. Patient states he stopped taking all his meds 1 year ago and stopped seeing his primary care provider 3. History of diabetes mellitus. A1c has been ordered. A1c 7.4. Metformin started 4. History of hyperlipidemia. Patient started on Lipitor 5. History of coronary artery disease 6. History of daily marijuana use 7. history of depression Hospital course This is a 67-year-old male who presented to the emergency room with complaints of slurred speech and left extremity numbness. Patient states he has not followed with primary care in quite some time. Patient does state he seen Dr. Aldridge in the past. Patient states that yesterday afternoon he was at [employer] and noticed he was not able to speak clear sentences. Patient's family also noted the changes. Patient also experienced left arm numbness. Patient was brought into the emergency room family members. Patient has no past medical history of coronary artery disease, diabetes mellitus, GERD, hyperlipidemia, depression and smokes marijuana daily. patient states he stopped taking all medications in the past year. Head CT completed showing no acute intracranial hemorrhage or midline shift. There is mild to minimal diffuse age-related cerebral atrophy and chronic small vessel ischemic changes redemonstrated. No significant change from prior CT or MRI. X-ray completed showing chronic changes without acute pulmonary process. Carotid Doppler completed showing no significant hemodynamic stenosis. Intimal thickening and atherosclerotic plaque bilaterally. EKG completed showing normal sinus rhythm. Left axis deviation. Inferior infarct age undetermined. At this time patient's symptoms have resolved. No signs of any no deficits noted. Patient denies chest pain or shortness of breath. Patient denies nausea vomiting diarrhea. Patient denies any urinary burning and frequency. On 05/21/2018 patient is alert and oriented 3. Patient is currently sitting up in chair. Symptoms resolved. Patient ambulating independently. Patient is eager to go home. Patient denies shortness of breath. Patient denies nausea vomiting or diarrhea. Patient denies urinary burning. Patient will be started on Lipitor, Plavix, aspirin and metformin. Patient educated on the importance of compliance with medication and follow up with primary care provider. Awaiting final neurology clearance prior to discharge I performed an examination of the patient and discussed their management with the Nurse Practitioner. I have reviewed the Nurse Practitioner's notes and agree with the documented findings and plan of care Patient Condition at Discharge: Stable Plan - Discharge Summary Discharge Rx Participant: No New Discharge Prescriptions: New Aspirin 81 mg PO DAILY #30 chewable Atorvastatin [Lipitor] 80 mg PO HS #30 tab Clopidogrel [Plavix] 75 mg PO DAILY #30 tab Lisinopril [Zestril] 5 mg PO DAILY #30 tab metFORMIN HCL [Glucophage] 500 mg PO BID-W/MEALS #60 tab Discharge Medication List Aspirin 81 mg PO DAILY #30 chewable 05/21/18 [Rx] Atorvastatin [Lipitor] 80 mg PO HS #30 tab 05/21/18 [Rx] Clopidogrel [Plavix] 75 mg PO DAILY #30 tab 05/21/18 [Rx] Lisinopril [Zestril] 5 mg PO DAILY #30 tab 05/21/18 [Rx] metFORMIN HCL [Glucophage] 500 mg PO BID-W/MEALS #60 tab 05/21/18 [Rx] Follow up Appointment(s)/Referral(s): Fernanda Givens MD [STAFF PHYSICIAN] - 1 Week Sagar Aldridge MD [STAFF PHYSICIAN] - 05/27/18 1:30 pm Patient Instructions/Handouts: Transient Ischemic Attack (DC), Heart Healthy Diet (DC), Cholesterol and Your Health (GEN) Activity/Diet/Wound Care/Special Instructions: Activity as tolerated Diet heart healthy Discharge Disposition: HOME SELF-CARE
[2018-05-21] MEDS ORDERED: metFORMIN 500 MG TAB PO SCH (17:30)
== END 2018-05-21 14:40 | disposition home or self-care (01) | DRG 69 ==
LOC: EC 15:59 → 3SCARD 18:38
PROVIDERS: ADMIT Internal Medicine; ATTEND Internal Medicine
DX: G45.9 Transient cerebral ischemic attack, unspecified (principal); E11.51 Type 2 diabetes mellitus with diabetic peripheral angiopathy without gangrene; I25.10 Atherosclerotic heart disease of native coronary artery without angina pectoris; K21.9 Gastro-esophageal reflux disease without esophagitis; E78.5 Hyperlipidemia, unspecified; I67.9 Cerebrovascular disease, unspecified; G43.909 Migraine, unspecified, not intractable, without status migrainosus; T50.906A Underdosing of unspecified drugs, medicaments and biological substances, initial encounter; Z91.128 Patient's intentional underdosing of medication regimen for other reason; Z95.5 Presence of coronary angioplasty implant and graft; Z87.891 Personal history of nicotine dependence; Z87.820 Personal history of traumatic brain injury; Z86.59 Personal history of other mental and behavioral disorders; Z86.73 Personal history of transient ischemic attack (TIA), and cerebral infarction without residual deficits; Z81.8 Family history of other mental and behavioral disorders
CPT/HCPCS: 36415; 70450; 71046; 80048; 80053; 80061; 81003; 82009; 82150; 82550; 82553; 83036; 83690; 83735; 84484; 85025; 85610; 85730; 93005; 93306; 93880; 96360; 96361; 99291

== ENCOUNTER 2018-06-25 14:05 | Emergency (ER) | payer MEDICARE, OTHER ==
[2018-06-25 14:16] VITALS: BP 125/82; PULSE 93; RESP 20; TEMP 98.2
[2018-06-25] MEDS ORDERED: HYDROcodone/APAP 7.5-325MG 1 EACH TAB PO ONE (15:03)
--- NOTE | 2018-06-25 15:07 | XR ---
EXAMINATION TYPE: XR foot complete LT DATE OF EXAM: 06/25/2018 CLINICAL HISTORY: Left great toe and metatarsal pain after injury TECHNIQUE: Frontal, lateral, and oblique images of the left foot are obtained. COMPARISON: None FINDINGS: There is no acute fracture/dislocation evident in the left foot. The joint spaces in the left foot appear within normal limits other than mild arthropathy of the distal interphalangeal joint s. The overlying soft tissue appears unremarkable. IMPRESSION: There is no acute fracture or dislocation in the left foot.
--- NOTE | 2018-06-25 15:58 | ED ---
General Adult HPI - General Chief complaint: Extremity Injury, Lower Stated complaint: Toe Pain Source: patient, RN notes reviewed, old records reviewed Mode of arrival: ambulatory Limitations: no limitations - History of Present Illness Initial comments: 67-year-old male patient passed history of diabetes presents in ED with injury to left great toe. Patient was moving couch full that, contact his left great toe when he pulled it. Patient states that he felt pain in his MTP joint where make contact with the couch leg. Patient is ambulatory, states he has pain of left great toe with ambulation. Patient denies any other injury. Patient has no other pain in his foot besides his left great toe, no pain ankle. Denies other complaints. Systemic: Pt denies fatigue, myalgia, fever/chills, rash. Pt denies weakness, night sweats, weight loss. Neuro: Pt denies headache, visual disturbances, syncope or pre-syncope. HEENT: Pt denies ocular discharge or irritation, otalgia, rhinorrhea, pharyngitis or notable lymphadenopathy. Cardiopulmonary: Pt denies chest pain, SOB, heart palpitations, dyspnea on exertion. Abdominal/GI: Pt denies abdominal pain, n/v/d. : Pt denies dysuria, burning w/ urination, frequency/urgency. Denies new onset urinary or bowel incontinence. MSK: Pt denies myalgia, loss of strength or function in extremities. Neuro: Pt denies new onset weakness, paresthesias. - Related Data Previous Rx's Medication Instructions Recorded Aspirin 81 mg PO DAILY #30 chewable 05/21/18 Atorvastatin [Lipitor] 80 mg PO HS #30 tab 05/21/18 Clopidogrel [Plavix] 75 mg PO DAILY #30 tab 05/21/18 Lisinopril [Zestril] 5 mg PO DAILY #30 tab 05/21/18 metFORMIN HCL [Glucophage] 500 mg PO BID-W/MEALS #60 tab 05/21/18 Ibuprofen [Motrin] 600 mg PO Q6HR PRN #40 day 06/25/18 Allergies Allergy/AdvReac Type Severity Reaction Status Date / Time No Known Allergies Allergy Verified 06/25/18 14:13 Review of Systems ROS Statement: Those systems with pertinent positive or pertinent negative responses have been documented in the HPI. ROS Other: All systems not noted in ROS Statement are negative. Past Medical History Past Medical History: Coronary Artery Disease (CAD), Diabetes Mellitus, GERD/ Reflux, Hyperlipidemia, Musculoskeletal Disorder Additional Past Medical History / Comment(s): MIGRAINES, PAST HX SEVERAL CONCUSIIONS History of Any Multi-Drug Resistant Organisms: None Reported Past Surgical History: Back Surgery, Heart Catheterization With Stent, Orthopedic Surgery Additional Past Surgical History / Comment(s): left and right rotator cuff, LOWER BACK LASER SX(NERVES BURNED) Past Anesthesia/Blood Transfusion Reactions: No Reported Reaction Date of Last Stent Placement:: unsure Past Psychological History: Depression Smoking Status: Former smoker Past Alcohol Use History: Occasional Past Drug Use History: Marijuana - Past Family History Father Family Medical History: Dementia Additional Family Medical History / Comment(s): AT AGE 78 COMPLICATIONS FROM ALZHIEMERS Mother Family Medical History: Dementia Additional Family Medical History / Comment(s): AT AGE 90'S General Exam - General Exam Comments Initial Comments: Constitutional: NAD, AOX3, Pt has pleasant affect. HEENT: NC/AT, trachea midline, neck supple, no lymphadenopathy. Posterior pharynx non erythematous, without exudates. External ears appear normal, without discharge. Mucous membranes moist. Eyes PERRLA, EOM intact. There is no scleral icterus. No pallor noted. Cardiopulmonary: RRR, no murmurs, rubs or gallops, no JVD noted. Lungs CTAB in anterior and posterior ramírez. No peripheral edema. Abdominal exam: Abdomen soft and non-distended. Abdomen non-tender to palpation in all 4 quadrants. Bowel sounds active in LLQ. No hepatosplenomegaly. Neuro: CN II-XII grossly intact. No nuchal rigidity. MSK: Pain to palpation at the MTP joint in patient's left great toe. Patient has mild ecchymoses at MTP joint. Capillary refill less than 2 seconds on great toe. Radial pulse +2, sensation intact. Patient able wiggle toes. No tenderness to ankle. Patient has normal strength plantar and dorsi flexion, rotation ankle. Patient is ambulatory. No posterior calf tenderness bilaterally , homans sign negative bilaterally. Posterior tibialis and radial pulse +2 bilaterally. Limitations: no limitations Course Vital Signs 06/25/18 14:13 Temperature 98.2 F Pulse Rate 93 Respiratory 20 Rate Blood Pressure 125/82 O2 Sat by Pulse 98 Oximetry Medical Decision Making - Medical Decision Making 67-year-old female patient past history of diabetes presents to ED with osteoskeletal injury to left great toe after my contact with his couch leg. Patient is ambulatory with pain in left great toe. Physical exam did display some tenderness of the MTP joint. Plain film of left foot do not reveal any osseous abnormality, dislocation, acute fracture. Patient pain well-controlled in ED. Patient [id number] to drive patient home. Patient diagnosed with contusion of left great toe. Patient advised that he will likely have pain for approximately 5 days from this injury, however given orthopedic referral if pain continues. Patient given orthopedic walking boot, patient to bear weight as tolerated. Patient also educated on signs and symptoms of infection, patient verbalized understanding. Patient to return to ED if any new signs or symptoms develop including redness, swelling, increased pain, not able to ambulate, discharge, any other new symptoms. Patient follow up with PCP in 1-2 days. Case discussed with Dr. Ruiz. Disposition Clinical Impression: Contusion Disposition: HOME SELF-CARE Condition: Good Instructions: Foot Contusion (ED) Additional Instructions: Patient to adhere to previously discussed treatment plan and will take medication(s) as directed. Patient to follow up with PCP in 1-2 days. Patient to return to ED if symptoms do not improve. Prescriptions: Ibuprofen [Motrin] 600 mg PO Q6HR PRN #40 day PRN Reason: Pain Is patient prescribed a controlled substance at d/c from ED?: No Referrals: None,Stated [Primary Care Provider] - 1-2 days Torsten Turcios MD [Medical Doctor] - 1-2 days Time of Disposition: 15:57
== END 2018-06-25 16:05 | disposition home or self-care (01) ==
LOC: EC 14:05
DX: S90.112A Contusion of left great toe without damage to nail, initial encounter (principal); I25.10 Atherosclerotic heart disease of native coronary artery without angina pectoris; Z87.891 Personal history of nicotine dependence; Z95.1 Presence of aortocoronary bypass graft; W23.0XXA Caught, crushed, jammed, or pinched between moving objects, initial encounter
CPT/HCPCS: 99284

== ENCOUNTER 2018-07-09 06:15 | Observation (INO) | payer MEDICARE, OTHER ==
[2018-07-09 06:22] VITALS: TEMP 97.6
[2018-07-09] MEDS ORDERED: ASPIRIN 81 MG PO STA (06:24)
[2018-07-09 06:51] LABS: Basophils # (A) 0.1 k/uL (0-0.2); Basophils % (A) 1 %; Eosinophils # (A) 0.3 k/uL (0-0.7); Eosinophils % (A) 3 %; HCT 45.2 % (39.0-53.0); HGB 15.2 gm/dL (13.0-17.5); Lymphocytes # (A) 2.4 k/uL (1.0-4.8); Lymphocytes % (A) 24 %; MCH 31.4 pg (25.0-35.0); MCHC 33.6 g/dL (31.0-37.0); MCV 93.5 fL (80.0-100.0); Mean Platelet Volume 6.8; Monocytes # (A) 0.4 k/uL (0-1.0); Monocytes % (A) 3 %; Neutrophils # (A) 6.8 k/uL (1.3-7.7); Neutrophils % (A) 67 %; Platelet Count 257 k/uL (150-450); RBC 4.83 m/uL (4.30-5.90); RDW 12.9 % (11.5-15.5); WBC 10.1 k/uL (3.8-10.6)
[2018-07-09] MEDS ORDERED: NITROGLYCERIN OINT 1 INCH/GM PACKET TOPICAL STA (06:51)
--- NOTE | 2018-07-09 06:51 | ED ---
Chest Pain HPI - General Chief Complaint: Chest Pain Stated Complaint: Chest Pain Time Seen by Provider: 07/09/18 06:24 Source: patient Mode of arrival: wheelchair Limitations: no limitations - History of Present Illness Initial Comments: Jesus Reddy is an obese 67-year-old male with history of hypertension, hyperlipidemia and diabetes who presents the emergency department this morning for evaluation of sudden onset of chest pain that began this morning while watching television. Patient reports he's been having what he describes as light chest pain for couple of days but it was nothing he thought he needed to have evaluated. 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 Patient reports that he didn 't take anything for the chest pain came to the ER for evaluation however now that he has been sitting here relaxing he reports resolution of the chest pain. He is uncertain if the chest pain was worse when he got up to walk or ambulate. He is uncertain of triggers to the chest pain prior to this event of the chest pain which occurred at rest. - Related Data Home Medications Medication Instructions Recorded Confirmed Aspirin 81 mg PO DAILY 07/09/18 07/09/18 Atorvastatin [Lipitor] 80 mg PO HS 07/09/18 07/09/18 Clopidogrel Bisulfate [Plavix] 75 mg PO DAILY 07/09/18 07/09/18 Lisinopril [Zestril] 10 mg PO DAILY 07/09/18 07/09/18 metFORMIN HCL [Glucophage] 500 mg PO BID 07/09/18 07/09/18 Allergies Allergy/AdvReac Type Severity Reaction Status Date / Time No Known Allergies Allergy Verified 07/09/18 08:35 Review of Systems ROS Statement: Those systems with pertinent positive or pertinent negative responses have been documented in the HPI. ROS Other: All systems not noted in ROS Statement are negative. EKG Findings - EKG Comments: EKG Findings:: EKG obtained at 6:29 AM, rate is 84 rhythm is sinus there is left axis deviation, normal intervals, IA 156, QRS 104, QTC is 439. There is a right bundle branch block. ST elevations or depressions no evidence of acute ischemia or infarction. Past Medical History Past Medical History: Coronary Artery Disease (CAD), Diabetes Mellitus, GERD/ Reflux, Hyperlipidemia, Musculoskeletal Disorder Additional Past Medical History / Comment(s): MIGRAINES, PAST HX SEVERAL CONCUSIIONS History of Any Multi-Drug Resistant Organisms: None Reported Past Surgical History: Back Surgery, Heart Catheterization With Stent, Orthopedic Surgery Additional Past Surgical History / Comment(s): left and right rotator cuff, LOWER BACK LASER SX(NERVES BURNED) Past Anesthesia/Blood Transfusion Reactions: No Reported Reaction Date of Last Stent Placement:: unsure Past Psychological History: Depression Smoking Status: Former smoker Past Alcohol Use History: Occasional Past Drug Use History: Marijuana - Past Family History Father Family Medical History: Dementia Additional Family Medical History / Comment(s): AT AGE 78 COMPLICATIONS FROM ALZHIEMERS Mother Family Medical History: Dementia Additional Family Medical History / Comment(s): AT AGE 90'S General Exam - General Exam Comments Initial Comments: Physical Exam GENERAL: Patient is well-developed and well-nourished. Patient is nontoxic and well- hydrated and is in no distress. Unkempt appearance HENT: Normocephalic, Atraumatic. EYES: PERRL, EOMI PULMONARY: Unlabored respirations. No audible rales rhonchi or wheezing was noted. CARDIOVASCULAR: There is a regular rate and rhythm without any murmurs gallops or rubs. ABDOMEN: Soft and nontender with normal bowel sounds. Obese SKIN: Skin is clear with no lesions or rashes and otherwise unremarkable. Skin changes of bilateral lower extremities consistent with venous stasis : Deferred NEUROLOGIC: Patient is alert and oriented x3. Moving all extremities spontaneously MUSCULOSKELETAL: Normal extremities with adequate strength and full range of motion. No lower extremity swelling or edema. No calf tenderness. PSYCHIATRIC: Normal psychiatric evaluation. Odd affect. Limitations: no limitations Limitations: no limitations Course Vital Signs 07/09/18 06:17 Temperature 97.6 F Pulse Rate 94 Respiratory 20 Rate Blood Pressure 133/95 O2 Sat by Pulse 96 Oximetry [facility] was seen and evaluated, history was obtained from the patient This is a elderly gentleman with multiple comorbidities presenting with sudden onset of chest pain which occurred at rest but has improved since onset. Cardiac workup was ordered. EKG with no ischemic changes Chest x-ray unremarkable Initial troponin negative Patient's heart score 5 due to age and risk factors Patient care discussed with Dr. Lebron who accepts the patient and his service with a consult to cardiology Admission orders placed Disposition Clinical Impression: Chest pain Disposition: ADMITTED IP TO THIS [facility] Referrals: None,Stated [Primary Care Provider] - 1-2 days
[2018-07-09 07:11] LABS: INR 0.9 (<1.2); Partial Thromboplastin Time 23.2 sec (22.0-30.0); Prothrombin Time 9.6 sec (9.0-12.0)
--- NOTE | 2018-07-09 07:12 | XR ---
PA + LATERAL CXR: HISTORY: 67-year-old male with chest pain. COMPARISON: 05/19/2018. FINDINGS: Compared to the prior exam, there has been no significant interval change. The lungs remain clear. Heart size is normal and stable. No obvious hilar or mediastinal mass. No pneumothorax or effusion. No obvious acute osseous abnormality; postoperative changes are noted involving the shoulders bilaterally, as before. IMPRESSION: No acute abnormality or significant interval change.
[2018-07-09 07:13] LABS: ALT 22 U/L (21-72); AST 24 U/L (17-59); Albumin 3.7 g/dL (3.5-5.0); Alkaline Phosphatase 53 U/L (38-126); Anion Gap 9 mmol/L; Blood Urea Nitrogen 17 mg/dL (9-20); Calcium 9.1 mg/dL (8.4-10.2); Carbon Dioxide 23 mmol/L (22-30); Chloride 105 mmol/L (98-107); Glucose 316 mg/dL (74-99); Magnesium 1.8 mg/dL (1.6-2.3); Potassium 4.8 mmol/L (3.5-5.1); Sodium 137 mmol/L (137-145); Total Bilirubin 0.6 mg/dL (0.2-1.3); Total Protein 6.5 g/dL (6.3-8.2)
[2018-07-09 07:16] LABS: Creatine Kinase 57 U/L (55-170)
[2018-07-09 07:28] LABS: Creatine Kinase MB 0.6 ng/mL (0.0-2.4); Troponin I <0.012 ng/mL (0.000-0.034)
[2018-07-09] MEDS: NITROGLYCERIN SL TABS 0.4 MG TAB SUBLINGUAL PRN ×2 (08:34→08:41)
[2018-07-09 08:42] VITALS: PULSE 85; RESP 18
[2018-07-09 09:15] VITALS: BP 111/80
[2018-07-09 09:27] LABS: Glucose,Whole Blood 137 mg/dL (75-99)
[2018-07-09] MEDS ORDERED: INSULIN ASPART 100 UNIT/ML 1 ML 10 ML VIAL SQ SCH (12:30)
[2018-07-10] MEDS ORDERED: ASPIRIN 325 MG TAB PO SCH (09:00)
--- NOTE | 2018-07-10 23:50 | HP ---
HISTORY AND PHYSICAL CHIEF COMPLAINT: Chest pain, shortness of breath. HISTORY OF PRESENT ILLNESS: This is the first known admission for this gentleman who presented to the emergency room with chest pain. He has a history of heart disease. He had a stent about 5 years ago. He is also a diabetic and has hypertension and hyperlipidemia and he did not have shortness of breath, nausea, vomiting, diaphoresis or any radiation of the pain. REVIEW OF SYSTEMS: Otherwise unremarkable. He has had no other symptoms. Past medical history, family history, personal and social history is unremarkable and noncontributory. He is currently not taking any medications. He is not allergic to any. The only procedure he has had is a stent. He does not smoke. PHYSICAL EXAM: Blood pressure is 142/87 with a pulse of 66, respirations of 35 and he is afebrile. In general, appeared to be disheveled, in no acute distress. Skin color is normal. Skin is warm, dry. Lymph nodes not enlarged. Head, ears, eyes, nose, mouth, and throat were normal. Chest is clear but he had poor breath sounds with rales at the bases. He had an increased AP diameter. He has some expiratory wheezing. Cardiac exam is normal sinus rhythm and no murmurs or extra sounds. Abdomen is soft, nontender without visceromegaly or masses. Extremities: Normal. Neurologically he is intact. IMPRESSION: 1. Chest pain. 2. History of coronary artery disease. 3. Chronic obstructive pulmonary disease. PLAN: 1. Bed rest. 2. IV fluids. 3. Serial EKGs and enzymes. 4. Possible cardiology consult. MMODL / IJN: [id number] /
== END 2018-07-09 11:24 | disposition left against medical advice (07) ==
LOC: EC 06:15 → 1SOBS 08:24
PROVIDERS: ADMIT Family Medicine; ATTEND Family Medicine
DX: R07.89 Other chest pain (principal); I25.10 Atherosclerotic heart disease of native coronary artery without angina pectoris; J44.9 Chronic obstructive pulmonary disease, unspecified; K21.9 Gastro-esophageal reflux disease without esophagitis; E78.5 Hyperlipidemia, unspecified; E11.9 Type 2 diabetes mellitus without complications; I10 Essential (primary) hypertension; G43.909 Migraine, unspecified, not intractable, without status migrainosus; F32.9 Major depressive disorder, single episode, unspecified; Z79.82 Long term (current) use of aspirin; Z79.02 Long term (current) use of antithrombotics/antiplatelets; Z79.899 Other long term (current) drug therapy; Z79.84 Long term (current) use of oral hypoglycemic drugs; Z87.891 Personal history of nicotine dependence; Z87.820 Personal history of traumatic brain injury; Z95.5 Presence of coronary angioplasty implant and graft; Z82.0 Family history of epilepsy and other diseases of the nervous system
CPT/HCPCS: 99285; 36415; 93005; 83880; 80053; 82550; 82553; 83735; 84484; 85025; 85610; 85730; 71046; G0378

== ENCOUNTER 2019-01-05 16:16 | Emergency (ER) | payer MEDICARE, OTHER ==
[2019-01-05 16:22] VITALS: BP 129/87; PULSE 71; RESP 16; TEMP 98.6
--- NOTE | 2019-01-05 17:11 | ED ---
General Adult HPI - General Chief complaint: Skin/Abscess/Foreign Body Stated complaint: rt index finger infection Time Seen by Provider: 01/05/19 16:43 Source: patient, RN notes reviewed Mode of arrival: ambulatory - History of Present Illness Initial comments: 68-year-old male with a past medical history of NIDDM, hyperlipidemia, hypertension, CAD presents to the emergency department for a chief complaint of infection of right finger. Patient states this is been there for several days. States That it is painful and swollen. Denies fevers or chills. Denies burning or streaking redness up the finger. Denies any pain with movement of the digits of right hand.Patient has no other complaints at this time including shortness of breath, chest pain, abdominal pain, nausea or vomiting, headache, or visual changes. - Related Data Home Medications Medication Instructions Recorded Confirmed Aspirin 81 mg PO DAILY 07/09/18 07/09/18 Atorvastatin [Lipitor] 80 mg PO HS 07/09/18 07/09/18 Clopidogrel Bisulfate [Plavix] 75 mg PO DAILY 07/09/18 07/09/18 Lisinopril [Zestril] 10 mg PO DAILY 07/09/18 07/09/18 metFORMIN HCL [Glucophage] 500 mg PO BID 07/09/18 07/09/18 Previous Rx's Medication Instructions Recorded Cephalexin [Keflex] 500 mg PO Q6H 7 Days cap 01/05/19 Sulfamethox-Tmp 800-160Mg [Bactrim 1 tab PO Q12HR #14 tab 01/05/19 DS 800-160 mg] Allergies Allergy/AdvReac Type Severity Reaction Status Date / Time No Known Allergies Allergy Verified 01/05/19 16:23 Review of Systems ROS Statement: Those systems with pertinent positive or pertinent negative responses have been documented in the HPI. ROS Other: All systems not noted in ROS Statement are negative. Past Medical History Past Medical History: Coronary Artery Disease (CAD), Diabetes Mellitus, GERD/Reflux, Hyperlipidemia, Hypertension, Musculoskeletal Disorder Additional Past Medical History / Comment(s): 05/19/18 Likely a TIA, noncompliance-stopped meds and seeing his PCP for a year, NIDDM type II, chronic low back pain, several concussions. History of Any Multi-Drug Resistant Organisms: None Reported Past Surgical History: Back Surgery, Heart Catheterization With Stent, Orthopedic Surgery, Tonsillectomy Additional Past Surgical History / Comment(s): left and right rotator cuff, LOWER BACK LASER SX(NERVES BURNED), multiple pain procedures on back Past Anesthesia/Blood Transfusion Reactions: No Reported Reaction Date of Last Stent Placement:: 05/23/11 Past Psychological History: Depression Smoking Status: Former smoker - Past Family History Father Family Medical History: Dementia Additional Family Medical History / Comment(s): AT AGE 78 COMPLICATIONS FROM ALZHIEMERS Mother Family Medical History: Dementia Additional Family Medical History / Comment(s): AT AGE 90'S from dementia. General Exam General appearance: alert, in no apparent distress Head exam: Present: atraumatic, normocephalic, normal inspection Eye exam: Present: normal appearance, PERRL, EOMI. Absent: scleral icterus, conjunctival injection, periorbital swelling ENT exam: Present: normal exam, mucous membranes moist Neck exam: Present: normal inspection, full ROM. Absent: tenderness, meningismus, lymphadenopathy Respiratory exam: Present: normal lung sounds bilaterally. Absent: respiratory distress, wheezes, rales, rhonchi, stridor Cardiovascular Exam: Present: regular rate, normal rhythm, normal heart sounds. Absent: systolic murmur, diastolic murmur, rubs, gallop, clicks Extremities exam: Present: full ROM (Full range of motion of the right second digit including the DIP, PIP, MCP joint. No pain with extension or flexion.), tenderness (Generalized tenderness over the dorsal distal phalanx of the right second digit.), normal capillary refill (Capillary refill less than 2 seconds in all digits of the right hand including the second digit, radial pulse 2+.), other (Patient has a 1 cm x 1 cm paronychia noted of the proximal nail fold of the right second finger. No spreading redness or streaking redness. No cellulitic changes.) Course Vital Signs 01/05/19 16:20 Temperature 98.6 F Pulse Rate 71 Respiratory 16 Rate Blood Pressure 129/87 O2 Sat by Pulse 96 Oximetry Procedures - Incision & Drainage Consent Obtained: verbal consent Indication: Paronychia Site: other (Right second finger) Size (cm): 1 Anesthetic Used: lidocaine 1% I&D Cleaning Method: Chloroprep Scalpel Used: #11 I&D Drainage Obtained: Pus (Moderate amount) Patient Tolerated Procedure: well, no complications Medical Decision Making - Medical Decision Making 68-year-old male presents to the emergency department for chief complaint of pa ronychia noted to the right second digit. This has been there for several days. It is about 1 cm x 1 cm noted to the proximal nail fold of the right second digit. No cellulitic changes. No pain with bending the finger or extending the finger. Incision and drainage was completed successfully. Patient will be started on antibiotics. Educated about warm soaks. Educated to return immediately if symptoms are not improving or worsen. Disposition Clinical Impression: Paronychia Disposition: HOME SELF-CARE Condition: Good Instructions (If sedation given, give patient instructions): Paronychia (ED) Additional Instructions: Please take antibiotic as directed. Please perform warm soapy soaks several times daily. If you have any spreading or streaking redness or symptoms worsen return immediately to the emergency department. Otherwise follow-up with your primary care doctor in one to 2 days. Prescriptions: Sulfamethox-Tmp 800-160Mg [Bactrim DS 800-160 mg] 1 tab PO Q12HR #14 tab Cephalexin [Keflex] 500 mg PO Q6H 7 Days cap Is patient prescribed a controlled substance at d/c from ED?: No Referrals: [facility] [Primary Care Provider] - 1-2 days Time of Disposition: 17:09
== END 2019-01-05 17:21 | disposition home or self-care (01) ==
LOC: EC 16:16
DX: L03.011 Cellulitis of right finger (principal); I25.10 Atherosclerotic heart disease of native coronary artery without angina pectoris; E11.9 Type 2 diabetes mellitus without complications; K21.9 Gastro-esophageal reflux disease without esophagitis; E78.5 Hyperlipidemia, unspecified; I10 Essential (primary) hypertension; F32.9 Major depressive disorder, single episode, unspecified; Z87.891 Personal history of nicotine dependence; Z79.82 Long term (current) use of aspirin; Z79.01 Long term (current) use of anticoagulants; Z79.84 Long term (current) use of oral hypoglycemic drugs; Z79.899 Other long term (current) drug therapy
CPT/HCPCS: 10060; 99283

== ENCOUNTER 2019-02-24 17:41 | Emergency (ER) | payer MEDICARE, OTHER ==
[2019-02-24 17:49] VITALS: BP 127/79; PULSE 60; RESP 18; TEMP 98
[2019-02-24] MEDS ORDERED: DIPH,PERTUS(ACELL)TETVAC-LF 0.5 ML VIAL IM ONE (18:18)
[2019-02-24] MEDS ORDERED: LIDOCAINE 1% INJ 10MG/ML (20 ML MDV) SQ ONE (18:19)
[2019-02-24] MEDS ORDERED: SODIUM CHLORIDE 0.9% IRRIG 1,000 ML BTL IRRIGATION ONE (18:20)
--- NOTE | 2019-02-24 18:23 | ED ---
General Adult HPI - General Chief complaint: Extremity Injury, Lower Stated complaint: toe injury Time Seen by Provider: 02/24/19 18:11 Source: patient, RN notes reviewed Mode of arrival: ambulatory Limitations: no limitations - History of Present Illness Initial comments: 68-year-old male presents to the emergency department for a chief complaint of injury to the right great toe. States that yesterday afternoon about 30 hours ago he was carrying a couch into his daughter's house. Patient states he stubbed his toe on this and injured his nail. States that he got the bleeding to stop and soaked it. States he soaked it again this morning. Patient states that today he was leaving the house and the door closed and hit his toe and caused it to bleed again. States he is not up-to-date on tetanus. Denies any other injuries.Patient has no other complaints at this time including shortness of breath, chest pain, abdominal pain, nausea or vomiting, headache, or visual changes. - Related Data Home Medications Medication Instructions Recorded Confirmed Aspirin 81 mg PO DAILY 07/09/18 07/09/18 Atorvastatin [Lipitor] 80 mg PO HS 07/09/18 07/09/18 Clopidogrel Bisulfate [Plavix] 75 mg PO DAILY 07/09/18 07/09/18 Lisinopril [Zestril] 10 mg PO DAILY 07/09/18 07/09/18 metFORMIN HCL [Glucophage] 500 mg PO BID 07/09/18 07/09/18 Previous Rx's Medication Instructions Recorded Cephalexin [Keflex] 500 mg PO Q6H 7 Days cap 01/05/19 Sulfamethox-Tmp 800-160Mg [Bactrim 1 tab PO Q12HR #14 tab 01/05/19 DS 800-160 mg] Cephalexin [Keflex] 500 mg PO Q6HR 5 Days cap 02/24/19 Allergies Allergy/AdvReac Type Severity Reaction Status Date / Time No Known Allergies Allergy Verified 02/24/19 17:47 Review of Systems ROS Statement: Those systems with pertinent positive or pertinent negative responses have been documented in the HPI. ROS Other: All systems not noted in ROS Statement are negative. Past Medical History Past Medical History: Coronary Artery Disease (CAD), Diabetes Mellitus, GERD/Reflux, Hyperlipidemia, Hypertension, Musculoskeletal Disorder Additional Past Medical History / Comment(s): 05/19/18 Likely a TIA, noncompliance-stopped meds and seeing his PCP for a year, NIDDM type II, chronic low back pain, several concussions. History of Any Multi-Drug Resistant Organisms: None Reported Past Surgical History: Back Surgery, Heart Catheterization With Stent, Orthopedic Surgery, Tonsillectomy Additional Past Surgical History / Comment(s): left and right rotator cuff, LOWER BACK LASER SX(NERVES BURNED), multiple pain procedures on back Past Anesthesia/Blood Transfusion Reactions: No Reported Reaction Date of Last Stent Placement:: 05/23/11 Past Psychological History: Depression Smoking Status: Former smoker Past Alcohol Use History: None Reported Past Drug Use History: None Reported - Past Family History Father Family Medical History: Dementia Additional Family Medical History / Comment(s): AT AGE 78 COMPLICATIONS FROM ALZHIEMERS Mother Family Medical History: Dementia Additional Family Medical History / Comment(s): AT AGE 90'S from dementia. General Exam Limitations: no limitations General appearance: alert, in no apparent distress Head exam: Present: atraumatic, normocephalic, normal inspection Eye exam: Present: normal appearance, PERRL. Absent: scleral icterus, conjunctival injection ENT exam: Present: normal exam, mucous membranes moist Neck exam: Present: normal inspection, full ROM. Absent: tenderness, meningismus, lymphadenopathy Respiratory exam: Present: normal lung sounds bilaterally. Absent: respiratory distress, wheezes, rales, rhonchi, stridor Cardiovascular Exam: Present: regular rate, normal rhythm, normal heart sounds. Absent: systolic murmur, diastolic murmur, rubs, gallop, clicks Extremities exam: Present: full ROM (Full range motion of the right great toe.), normal capillary refill (Capillary refill less than 2 seconds, DP pulse 2+.), other (Patient has avulsion of the nail along the medial lateral and distal nail folds. No lacerations to nail bed. No evidence of foreign body. Full range of motion in the right great toe. No evidence of tendon injury. No erythema or drainage, no evidence of infection.) Course Vital Signs 02/24/19 17:46 Temperature 98.0 F Pulse Rate 60 Respiratory 18 Rate Blood Pressure 127/79 O2 Sat by Pulse 97 Oximetry Medical Decision Making - Medical Decision Making 18-year-old male presents for injury to the right great toenail. This occurred 30 hours ago. Patient stubbed his toe on a couch. This caused near avulsion of the nail. Patient again injured his toe today which prompted him to come to the emergency Department. Tetanus was updated. On exam there is avulsion along the medial and lateral nail folds of the nail bed. Nail is completely detached from nail bed. No laceration of the nailbed. X-ray of the right great toe shows soft tissue swelling without fracture or malalignment. Wound was cleaned thoroughly with normal saline and iodine. Dr. Martinez visualized the toe, recommends removing the nail completely. Patient has full range motion of the toe. Sensation is intact. Digital block was performed using 5 mL's of 1% lidocaine after cleansing the area with a ChloraPrep wipe. The nail was then easily removed along the proximal nail fold. Wound was then covered with bacitracin and wrapped with gauze. Again no lacerations of the nail bed. Patient was given Keflex to prevent infection as he is a diabetic. He will follow up with primary care. He will return if he has any worsening symptoms. Disposition Clinical Impression: Nail avulsion of toe Disposition: HOME SELF-CARE Condition: Good Instructions (If sedation given, give patient instructions): Nail Avulsion (ED) Additional Instructions: Please take antibiotic as directed. Keep the wound clean. Follow-up with primary care in 1-2 days. Return to the emergency department if you have any worsening symptoms including signs of infection such as spreading redness streaking redness drainage or fever. Prescriptions: Cephalexin [Keflex] 500 mg PO Q6HR 5 Days cap Is patient prescribed a controlled substance at d/c from ED?: No Referrals: [facility] [Primary Care Provider] - 1-2 days Time of Disposition: 19:30
--- NOTE | 2019-02-24 19:20 | XR ---
PROCEDURE: XR great toe RT - 3V DATE AND TIME: 02/24/2019 6:32 PM CLINICAL INDICATION: PH[facility]; lac, nail avulsion, first digit TECHNIQUE: Department protocol COMPARISON: None FINDINGS: There is soft tissue swelling. No radiopaque foreign body. Scattered mild osteoarthritis ch anges appreciated. There is no fracture or malalignment. IMPRESSION: Soft tissue swelling.
== END 2019-02-24 19:37 | disposition home or self-care (01) ==
LOC: EC 17:41
DX: S91.201A Unspecified open wound of right great toe with damage to nail, initial encounter (principal); I25.10 Atherosclerotic heart disease of native coronary artery without angina pectoris; E11.9 Type 2 diabetes mellitus without complications; E78.5 Hyperlipidemia, unspecified; I10 Essential (primary) hypertension; G89.29 Other chronic pain; Z87.891 Personal history of nicotine dependence; Z79.02 Long term (current) use of antithrombotics/antiplatelets; Z79.82 Long term (current) use of aspirin; Z79.84 Long term (current) use of oral hypoglycemic drugs; Z79.899 Other long term (current) drug therapy; Z95.5 Presence of coronary angioplasty implant and graft; Z23 Encounter for immunization; W22.8XXA Striking against or struck by other objects, initial encounter; Y93.89 Activity, other specified; Y92.009 Unspecified place in unspecified non-institutional (private) residence as the place of occurrence of the external cause
CPT/HCPCS: 73660; 90715; 99283; 11730; 90471; J2001

== ENCOUNTER 2019-02-28 10:16 | Inpatient (IN) | payer MEDICARE, OTHER ==
[2019-02-28] MEDS ORDERED: VANCOMYCIN IV PER PHARMACY 1 EACH MISC MISCELLANE PRN (11:02)
[2019-02-28] MEDS ORDERED: SODIUM CHLORIDE 0.9% 1,000 ML IV STA ×2 (11:02)
--- NOTE | 2019-02-28 11:07 | ED ---
Skin/Abscess/FB HPI - General Chief complaint: Skin/Abscess/Foreign Body Stated complaint: Infection Time Seen by Provider: 02/28/19 10:26 Source: patient, RN notes reviewed, old records reviewed Mode of arrival: ambulatory Limitations: no limitations - History of Present Illness Initial comments: This is a 68-year-old male the ER for evaluation today for evaluation right great toe pain. Patient was seen in right toe injury right toenail injury and h ad removal of right toenail. Over the last 2 days pain is increased he has been on Keflex but redness is increasing from the top swelling of the toe and redness spreading up the foot. Patient has no fevers is a known diabetic. No new trauma to that toe. MD complaint: abscess/boil, discoloration (Increased erythema right great toe) -: days(s) (2) Tetanus Up to Date: no Location: R foot (Great toe) Severity: moderate Severity scale (1-10): 4 Quality: aching Consistency: constant Improves with: none Worsens with: none Context: none Associated symptoms: denies other symptoms Treatments Prior to Arrival: none - Related Data Home Medications Medication Instructions Recorded Confirmed Aspirin 81 mg PO DAILY 07/09/18 02/28/19 metFORMIN HCL [Glucophage] 500 mg PO BID 07/09/18 02/28/19 Atorvastatin [Lipitor] 20 mg PO DAILY 02/28/19 02/28/19 Escitalopram [Lexapro] 20 mg PO DAILY 02/28/19 02/28/19 Isosorbide Mononitrate ER [Imdur] 30 mg PO DAILY 02/28/19 02/28/19 Nitroglycerin Sl Tabs [Nitrostat] 0.4 mg SUBLINGUAL Q5M PRN 02/28/19 02/28/19 Allergies Allergy/AdvReac Type Severity Reaction Status Date / Time No Known Allergies Allergy Verified 02/28/19 10:31 Review of Systems ROS Statement: Those systems with pertinent positive or pertinent negative responses have been documented in the HPI. ROS Other: All systems not noted in ROS Statement are negative. Past Medical History Past Medical History: Coronary Artery Disease (CAD), CVA/TIA, Diabetes Mellitus, GERD/Reflux, Hyperlipidemia, Hypertension, Musculoskeletal Disorder Additional Past Medical History / Comment(s): NIDDM type II, chronic low back pain History of Any Multi-Drug Resistant Organisms: None Reported Past Surgical History: Back Surgery, Heart Catheterization With Stent, Orthopedic Surgery, Tonsillectomy Additional Past Surgical History / Comment(s): left and right rotator cuff, LOWER BACK LASER SX(NERVES BURNED), multiple pain procedures on back Past Anesthesia/Blood Transfusion Reactions: No Reported Reaction Date of Last Stent Placement:: 05/23/11 Past Psychological History: Depression Smoking Status: Former smoker Past Alcohol Use History: None Reported Past Drug Use History: Marijuana - Past Family History Father Family Medical History: Dementia Additional Family Medical History / Comment(s): AT AGE 78 COMPLICATIONS FROM ALZHIEMERS Mother Family Medical History: Dementia Additional Family Medical History / Comment(s): AT AGE 90'S from dementia. General Exam - General Exam Comments Initial Comments: Right great toe erythema missing toenail which was removed, patient does have erythema spreading up leg also has cut on bottom aspect of toe old and healing but does look infected Limitations: no limitations General appearance: alert, in no apparent distress Head exam: Present: atraumatic, normocephalic, normal inspection Eye exam: Present: normal appearance, PERRL, EOMI. Absent: scleral icterus, conjunctival injection, periorbital swelling ENT exam: Present: normal exam, mucous membranes moist Neck exam: Present: normal inspection. Absent: tenderness, meningismus, lymphadenopathy Respiratory exam: Present: normal lung sounds bilaterally. Absent: respiratory distress, wheezes, rales, rhonchi, stridor Cardiovascular Exam: Present: regular rate, normal rhythm, normal heart sounds. Absent: systolic murmur, diastolic murmur, rubs, gallop, clicks GI/Abdominal exam: Present: soft, normal bowel sounds. Absent: distended, tenderness, guarding, rebound, rigid Extremities exam: Present: normal inspection, full ROM, normal capillary refill. Absent: tenderness, pedal edema, joint swelling, calf tenderness Back exam: Present: normal inspection Neurological exam: Present: alert, oriented X3, CN II-XII intact Psychiatric exam: Present: normal affect, normal mood Skin exam: Present: warm, dry, intact, normal color. Absent: rash Course Vital Signs 02/28/19 10:21 Temperature 97.8 F Pulse Rate 63 Respiratory 18 Rate Blood Pressure 106/55 O2 Sat by Pulse 96 Oximetry - Reevaluation(s) Reevaluation #1: 02/28/19 11:43 Medical records reviewed Reevaluation #2: 02/28/19 11:43 Patient has no specific new complaints Medical Decision Making - Medical Decision Making 68 male the ER for evaluation of right great toe infection, patient has 2 sources of infection removed right toenail as well as laceration to bottom of toe which is healed. Patient will be admitted for IV antibiotics secondary to diabetes and felt outpatient treatment as he has been on Keflex for 2 days and had onset of infection - Lab Data Result diagrams: 02/28/19 10:48 02/28/19 10:48 Lab Results 02/28/19 02/28/19 02/28/19 Range/Units 10:48 10:48 10:48 WBC 7.4 (3.8-10.6) k/uL RBC 4.89 (4.30-5.90) m/uL Hgb 16.0 (13.0-17.5) gm/dL Hct 46.7 (39.0-53.0) % MCV 95.6 (80.0-100.0) fL MCH 32.6 (25.0-35.0) pg MCHC 34.1 (31.0-37.0) g/dL RDW 14.6 (11.5-15.5) % Plt Count 222 (150-450) k/uL Neutrophils % 42 % Lymphocytes % 44 % Monocytes % 6 % Eosinophils % 4 % Basophils % 1 % Neutrophils # 3.1 (1.3-7.7) k/uL Lymphocytes # 3.3 (1.0-4.8) k/uL Monocytes # 0.5 (0-1.0) k/uL Eosinophils # 0.3 (0-0.7) k/uL Basophils # 0.1 (0-0.2) k/uL PT (9.0-12.0) sec INR (<1.2) APTT (22.0-30.0) sec Sodium 137 (137-145) mmol/L Potassium 4.7 (3.5-5.1) mmol/L Chloride 106 (98-107) mmol/L Carbon Dioxide 21 L (22-30) mmol/L Anion Gap 10 mmol/L BUN 15 (9-20) mg/dL Creatinine 0.80 (0.66-1.25) mg/dL Est GFR (CKD-EPI)AfAm >90 (>60 ml/min/1.73 sqM) Est GFR (CKD-EPI)NonAf >90 (>60 ml/min/1.73 sqM) Glucose 126 H (74-99) mg/dL Plasma Lactic Acid Akira 1.2 (0.7-2.0) mmol/L Calcium 9.0 (8.4-10.2) mg/dL Phosphorus 3.6 (2.5-4.5) mg/dL Magnesium 2.0 (1.6-2.3) mg/dL Total Bilirubin 0.6 (0.2-1.3) mg/dL AST 17 (17-59) U/L ALT 17 L (21-72) U/L Alkaline Phosphatase 53 (38-126) U/L Total Protein 6.9 (6.3-8.2) g/dL Albumin 4.1 (3.5-5.0) g/dL 02/28/19 Range/Units 10:48 WBC (3.8-10.6) k/uL RBC (4.30-5.90) m/uL Hgb (13.0-17.5) gm/dL Hct (39.0-53.0) % MCV (80.0-100.0) fL MCH (25.0-35.0) pg MCHC (31.0-37.0) g/dL RDW (11.5-15.5) % Plt Count (150-450) k/uL Neutrophils % % Lymphocytes % % Monocytes % % Eosinophils % % Basophils % % Neutrophils # (1.3-7.7) k/uL Lymphocytes # (1.0-4.8) k/uL Monocytes # (0-1.0) k/uL Eosinophils # (0-0.7) k/uL Basophils # (0-0.2) k/uL PT 10.0 (9.0-12.0) sec INR 0.9 (<1.2) APTT 24.8 (22.0-30.0) sec Sodium (137-145) mmol/L Potassium (3.5-5.1) mmol/L Chloride (98-107) mmol/L Carbon Dioxide (22-30) mmol/L Anion Gap mmol/L BUN (9-20) mg/dL Creatinine (0.66-1.25) mg/dL Est GFR (CKD-EPI)AfAm (>60 ml/min/1.73 sqM) Est GFR (CKD-EPI)NonAf (>60 ml/min/1.73 sqM) Glucose (74-99) mg/dL Plasma Lactic Acid Akira (0.7-2.0) mmol/L Calcium (8.4-10.2) mg/dL Phosphorus (2.5-4.5) mg/dL Magnesium (1.6-2.3) mg/dL Total Bilirubin (0.2-1.3) mg/dL AST (17-59) U/L ALT (21-72) U/L Alkaline Phosphatase (38-126) U/L Total Protein (6.3-8.2) g/dL Albumin (3.5-5.0) g/dL - Radiology Data Radiology results: report reviewed (X-ray right foot negative for acute disease), image reviewed Disposition Clinical Impression: Diabetes, Nail avulsion of toe, Cellulitis of great toe, right Disposition: ADMITTED IP TO THIS [facility] Condition: Good Is patient prescribed a controlled substance at d/c from ED?: No Referrals: [facility] [Primary Care Provider] - 1-2 days
[2019-02-28] MEDS ORDERED: VANCOMYCIN 2,000 MG in SODIUM CHLORIDE 0.9% 500 ML 500 ML IVPB STA (11:12)
[2019-02-28 11:17] LABS: Basophils # (A) 0.1 k/uL (0-0.2); Basophils % (A) 1 %; Eosinophils # (A) 0.3 k/uL (0-0.7); Eosinophils % (A) 4 %; HCT 46.7 % (39.0-53.0); Lymphocytes # (A) 3.3 k/uL (1.0-4.8); Lymphocytes % (A) 44 %; MCH 32.6 pg (25.0-35.0); MCHC 34.1 g/dL (31.0-37.0); MCV 95.6 fL (80.0-100.0); Mean Platelet Volume 7.5; Monocytes # (A) 0.5 k/uL (0-1.0); Monocytes % (A) 6 %; Neutrophils # (A) 3.1 k/uL (1.3-7.7); Neutrophils % (A) 42 %; Platelet Count 222 k/uL (150-450); RBC 4.89 m/uL (4.30-5.90); RDW 14.6 % (11.5-15.5); WBC 7.4 k/uL (3.8-10.6)
[2019-02-28 11:28] LABS: ALT 17 U/L (21-72); AST 17 U/L (17-59); African American GFR (CKD) >90 (>60 ml/min/1.73 sqM); Albumin 4.1 g/dL (3.5-5.0); Alkaline Phosphatase 53 U/L (38-126); Anion Gap 10 mmol/L; Blood Urea Nitrogen 15 mg/dL (9-20); Carbon Dioxide 21 mmol/L (22-30); Chloride 106 mmol/L (98-107); Glucose 126 mg/dL (74-99); Non-African American GFR(CKD) >90 (>60 ml/min/1.73 sqM); Phosphorus 3.6 mg/dL (2.5-4.5); Potassium 4.7 mmol/L (3.5-5.1); Sodium 137 mmol/L (137-145); Total Bilirubin 0.6 mg/dL (0.2-1.3); Total Protein 6.9 g/dL (6.3-8.2)
[2019-02-28 11:30] LABS: INR 0.9 (<1.2); Partial Thromboplastin Time 24.8 sec (22.0-30.0)
--- NOTE | 2019-02-28 12:16 | XR ---
EXAMINATION TYPE: XR foot complete RT DATE OF EXAM: 02/28/2019 COMPARISON: Right great toe 02/24/2019 HISTORY: Pain great toe TECHNIQUE: 3 views right foot FINDINGS: Minimal soft tissue swelling over the right great toe may be present. No acute fractures ar e evident within right foot. Joint spaces appear preserved. IMPRESSION: 1. Mild soft tissue swelling diffusely through the right great toe. 2. No suspicious underlying osseous abnormality.
[2019-02-28] MEDS ORDERED: NITROGLYCERIN SL TABS 0.4 MG TAB SUBLINGUAL PRN (14:30)
[2019-02-28] MEDS ORDERED: HYDROmorphone 0.5 MG/0.5 ML SYRINGE IVP PRN (14:32)
[2019-02-28] MEDS ORDERED: HYDROcodone/APAP 5-325MG 1 EACH TAB PO PRN (14:32)
[2019-02-28] MEDS ORDERED: TEMAZEPAM 15 MG CAP PO PRN (14:32)
[2019-02-28] MEDS ORDERED: ALPRAZolam 0.25 MG TAB PO PRN (14:32)
[2019-02-28 14:57] VITALS: BMI 36.3
[2019-02-28 16:45] LABS: Glucose,Whole Blood 176 mg/dL (75-99)
[2019-02-28] MEDS: INSULIN ASPART (NovoLOG) 100 UNIT/ML VIAL SQ SCH ×2 (17:11→20:22)
--- NOTE | 2019-02-28 18:00 | HP ---
HISTORY AND PHYSICAL DATE OF SERVICE: 02/28/2019. CHIEF COMPLAINT: Right great toe pain and infection. HISTORY OF PRESENT ILLNESS: This 68-year-old gentleman with a past medical history of diabetes type 2, history of CAD, history of GERD, hypertension, hyperlipidemia, history of back surgery, CAD/stent being followed by [facility] and as well as [facility] in the outpatient setting. The patient apparently had a couch falling on the right great toe removing the nail and subsequently patient noted pain and swelling and the patient came to [facility] and admitted to the hospital for further evaluation and treatment. The patient had some cardiac history, but currently no chest pain. The troponin is found to be 0.77. The patient admitted for further evaluation and treatment to telemetry. There is no history of fever, rigors or chills. No history of headache, loss of consciousness or seizures. PAST MEDICAL HISTORY: CAD, CVA, diabetes, GERD, hypertension, hyperlipidemia, myocardial infarction, history of CAD/stent, depression. MEDICATIONS ARE: 1. Metformin 500 mg p.o. b.i.d. 2. Nitrostat 0.4 mg p.r.n. 3. Imdur ER 30 mg. 4. Lexapro 20 mg daily. 5. Lipitor 20 mg daily. 6. Aspirin 81 mg daily. ALLERGIES: None. FAMILY HISTORY: History of dementia. SOCIAL HISTORY: Previous history of smoking, and THC. REVIEW OF SYSTEMS: ENT: No diminished vision. No diminished hearing. CARDIOVASCULAR as mentioned earlier. RESPIRATORY: As mentioned earlier. GI no nausea or vomiting or diarrhea. no dysuria or hematuria. Nervous system: No numbness or weakness. ALLERGY: No asthma or hayfever. MUSCULOSKELETAL as mentioned earlier. HEMATOLOGY/ONCOLOGY: No history of anemia. ENDOCRINE: Diabetes. CONSTITUTIONAL: As mentioned earlier. DERMATOLOGY as mentioned earlier. RHEUMATOLOGY: As mentioned earlier. PSYCHIATRIC: As mentioned earlier. PHYSICAL EXAMINATION: The patient is alert and oriented times three. Pulse 76, blood pressure 117/60, respirations 16, temperature 97.8, pulse ox 98% on room air. HEENT: Conjunctivae normal. Oral mucosa moist. NECK is no jugular venous distention. No carotid bruit. No lymph node enlargement. CARDIOVASCULAR systems: S1, S2 muffled. RESPIRATIONS: Breath sounds diminished in the bases. No rhonchi. No crackles. ABDOMEN: Soft, nontender. No mass palpable. LEGS: No edema. No swelling. NERVOUS SYSTEM: Higher functions as mentioned earlier. Moves all 4 limbs. No focal motor or sensory deficits. Lymphatics: No lymph nodes palpable in the neck, axillae or groin. SKIN: Right great toe infection. JOINTS: No active deforming arthropathy. Examination of the leg, right great toe tender and also some erythema, swelling also present. No fluctuation elicited. LABS: CBC within normal limits. Sodium 137, potassium 4.7. Creatinine noted. Otherwise x- ray foot shows mild soft tissue swelling of the right great toe. No suspicion for underlying osseous abnormality. ASSESSMENT: 1. Right big toe infection cellulitis status post injury. 2. Troponin 0.0772, indeterminate. Rule out acute non ST segment elevation myocardial infarction. 3. History of coronary artery disease. 4. History of cerebrovascular accident, transient ischemic attack. 5. Diabetes mellitus type 2. 6. Gastroesophageal reflux disease. 7. Hypertension. 8. History of coronary artery disease, stent. 9. History of low back pain, degenerative joint disease. 10.History of depression. 11.History of THC. RECOMMENDATIONS AND DISCUSSION: In this 68-year-old gentleman who presented with multiple medical issues, at this time, I will initiate broad-spectrum IV antibiotics. Infectious Disease evaluation. Resume the home medication. Monitor blood sugars closely. I would also recommend a 2D echo with Doppler and cardiology consultation for evaluation of the elevated troponin even though the patient is asymptomatic at this time. Overall prognosis guarded because of the multiple complex medical issues. Further recommendations to follow. MMODL / IJN: [id number] /
[2019-02-28] MEDS: metFORMIN 500 MG TAB PO SCH (20:22)
[2019-02-28] MEDS: HEPARIN SODIUM,PORCINE 5,000 UNIT/ML 1 ML VIAL SQ SCH (20:22)
[2019-02-28 20:23] LABS: Glucose,Whole Blood 94 mg/dL (75-99)
[2019-02-28] MEDS: VANCOMYCIN 2,000 MG in SODIUM CHLORIDE 0.9% 500 ML 500 ML IVPB SCH (22:41)
[2019-03-01] MEDS: INSULIN ASPART (NovoLOG) 100 UNIT/ML VIAL SQ SCH ×4 (06:28→20:43)
[2019-03-01] MEDS: PANTOPRAZOLE 40 MG TABLET PO SCH (06:29)
[2019-03-01 06:40] LABS: Glucose,Whole Blood 144 mg/dL (75-99)
[2019-03-01 06:48] LABS: Basophils # (A) 0.1 k/uL (0-0.2); Basophils % (A) 1 %; Eosinophils # (A) 0.4 k/uL (0-0.7); Eosinophils % (A) 5 %; HCT 47.4 % (39.0-53.0); HGB 15.9 gm/dL (13.0-17.5); Lymphocytes # (A) 2.8 k/uL (1.0-4.8); Lymphocytes % (A) 39 %; MCH 32.3 pg (25.0-35.0); MCHC 33.6 g/dL (31.0-37.0); Mean Platelet Volume 7.1; Monocytes # (A) 0.4 k/uL (0-1.0); Monocytes % (A) 6 %; Neutrophils # (A) 3.2 k/uL (1.3-7.7); Neutrophils % (A) 46 %; Platelet Count 221 k/uL (150-450); RBC 4.93 m/uL (4.30-5.90); RDW 12.9 % (11.5-15.5); WBC 7.1 k/uL (3.8-10.6)
[2019-03-01 07:10] LABS: African American GFR (CKD) >90 (>60 ml/min/1.73 sqM); Anion Gap 7 mmol/L; Blood Urea Nitrogen 15 mg/dL (9-20); Calcium 8.3 mg/dL (8.4-10.2); Carbon Dioxide 23 mmol/L (22-30); Chloride 109 mmol/L (98-107); Glucose 132 mg/dL (74-99); Non-African American GFR(CKD) 88 (>60 ml/min/1.73 sqM); Potassium 5.1 mmol/L (3.5-5.1); Sodium 139 mmol/L (137-145)
--- NOTE | 2019-03-01 08:11 | P.CRDCN ---
History of Present Illness Consult date: 03/01/19 Chief complaint: Right toe pain History of present illness: This is a pleasant 68-year-old gentleman with a past medical history significant for coronary artery disease and prior stenting, the details on that are unknown, the stenting was performed in 2010, diabetes, hypertension, and dyslipidemia, presented to the emergency room complaining of pain in the right toe. Currently the patient does not follow with any transition social worker. He was moving a couch out of his portion when the edge of the couch fell on the right toenail. It pulled the right toenail out completely. The patient after that was experiencing severe pain. For the last few days, he was experiencing beside the pain swollen, redness, and edema in the right toenail and because of that he decided to come to the emergency room. He does not remember having any symptoms of syncope or presyncope, no symptoms of chest pain or chest discomfort, shortness of breath, dizziness, heart racing or heart fluttering. We involved in the care of the patient because her troponin was checked and came in to be abnormal. We only have one set of troponin. I am going to obtain 2 more sets to check the troponin trend. The patient does not have any other reason for abnormal troponin like tachycardia, hypotension, or abnormal kidney function. The EKG shows sinus rhythm without any significant ST or T-wave abnormalities. The chest x-ray did not show any acute abnormalities. The right toe x-ray did not show any acute abnormalities. The rest of his blood work came in to be unrem arkable. The patient underwent an echocardiogram in 2017 and that revealed normal LV function with evidence of mild aortic stenosis. On physical examination he definitely has right upper sternal border systolic murmur and left upper sternal systolic murmur as well. I am in process of getting an e chocardiogram with Doppler on him. Beside that we'll obtain 2 more sets of serial cardiac enzymes. Repeat EKG. And follow-up with him. Past Medical History Past Medical History: Coronary Artery Disease (CAD), CVA/TIA, Diabetes Mellitus, GERD/Reflux, Hyperlipidemia, Hypertension, Musculoskeletal Disorder Additional Past Medical History / Comment(s): NIDDM type II, chronic low back pain History of Any Multi-Drug Resistant Organisms: None Reported Past Surgical History: Back Surgery, Heart Catheterization With Stent, Orthopedic Surgery, Tonsillectomy Additional Past Surgical History / Comment(s): left and right rotator cuff, LOWER BACK LASER SX(NERVES BURNED), multiple pain procedures on back Past Anesthesia/Blood Transfusion Reactions: No Reported Reaction Date of Last Stent Placement:: 05/23/11 Past Psychological History: Depression Additional Psychological History / Comment(s): Pt resides with his son, daughter in law and 2 granddaughters. He uses no assistive device. He drives. He states his depression has been increased lately and that he has recently established at [facility]. He states he has no suicidal thoughts/plans because he could not do that to his small grand daughters. 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 Past Drug Use History: Marijuana Additional Drug Use History / Comment(s): Pt states uses marijuana daily since 1968, usually 2 small bowls a day. - Past Family History Father Family Medical History: Dementia Additional Family Medical History / Comment(s): AT AGE 78 COMPLICATIONS FROM ALZHIEMERS Mother Family Medical History: Dementia Additional Family Medical History / Comment(s): AT AGE 90'S from dementia. Medications and Allergies Home Medications Medication Instructions Recorded Confirmed Type Aspirin 81 mg PO DAILY 07/09/18 02/28/19 History metFORMIN HCL [Glucophage] 500 mg PO BID 07/09/18 02/28/19 History Atorvastatin [Lipitor] 20 mg PO DAILY 02/28/19 02/28/19 History Escitalopram [Lexapro] 20 mg PO DAILY 02/28/19 02/28/19 History Isosorbide Mononitrate ER [Imdur] 30 mg PO DAILY 02/28/19 02/28/19 History Nitroglycerin Sl Tabs [Nitrostat] 0.4 mg SUBLINGUAL Q5M PRN 02/28/19 02/28/19 History Allergies Allergy/AdvReac Type Severity Reaction Status Date / Time No Known Allergies Allergy Verified 02/28/19 10:31 Physical Exam Vitals: Vital Signs Temp Pulse Pulse Resp BP BP Pulse Ox 03/01/19 03:01 97.8 F 56 L 18 135/82 94 L 02/28/19 23:31 98.0 F 58 L 17 108/65 96 02/28/19 20:00 97.8 F 56 L 18 115/70 95 02/28/19 14:00 98.0 F 62 18 133/81 02/28/19 12:40 76 16 117/68 99 02/28/19 10:21 97.8 F 63 18 106/55 96 Intake and Output 02/28/19 03/01/19 03/01/19 22:59 06:59 14:59 Intake Total 480 480 Balance 480 480 Intake: Oral 480 480 Other: Voiding Method Toilet Toilet # Voids 1 1 Weight 102.5 kg - Constitutional General appearance: no acute distress - Respiratory Respiratory: bilateral: CTA - Cardiovascular Rhythm: regular Heart sounds: normal: S1, S2 Abnormal Heart Sounds: systolic murmur Results 03/01/19 05:38 03/01/19 05:38 Cardiac Enzymes 02/28/19 02/28/19 Range/Units 10:48 10:48 AST 17 (17-59) U/L Troponin I 0.070 H* (0.000-0.034) ng/mL Coagulation 02/28/19 Range/Units 10:48 PT 10.0 (9.0-12.0) sec APTT 24.8 (22.0-30.0) sec CBC 02/28/19 03/01/19 Range/Units 10:48 05:38 WBC 7.4 7.1 (3.8-10.6) k/uL RBC 4.89 4.93 (4.30-5.90) m/uL Hgb 16.0 15.9 (13.0-17.5) gm/dL Hct 46.7 47.4 (39.0-53.0) % Plt Count 222 221 (150-450) k/uL Comprehensive Metabolic Panel 02/28/19 03/01/19 Range/Units 10:48 05:38 Sodium 137 139 (137-145) mmol/L Potassium 4.7 5.1 (3.5-5.1) mmol/L Chloride 106 109 H (98-107) mmol/L Carbon Dioxide 21 L 23 (22-30) mmol/L BUN 15 15 (9-20) mg/dL Creatinine 0.80 0.85 (0.66-1.25) mg/dL Glucose 126 H 132 H (74-99) mg/dL Calcium 9.0 8.3 L (8.4-10.2) mg/dL AST 17 (17-59) U/L ALT 17 L (21-72) U/L Alkaline Phosphatase 53 (38-126) U/L Total Protein 6.9 (6.3-8.2) g/dL Albumin 4.1 (3.5-5.0) g/dL Current Medications Generic Name Dose Route Start Last Admin Trade Name Freq PRN Reason Stop Dose Admin Hydrocodone Bitart/Acetaminophen 1 each 02/28/19 14:32 [place] 5-325 PO Q6HR PRN Pain Alprazolam 0.25 mg 02/28/19 14:32 Xanax PO TID PRN Anxiety Aspirin 81 mg 03/01/19 09:00 Aspirin PO DAILY [facility] Atorvastatin Calcium 20 mg 03/01/19 09:00 Lipitor PO DAILY [facility] Escitalopram Oxalate 20 mg 03/01/19 09:00 Lexapro PO DAILY [facility] Heparin Sodium (Porcine) 5,000 unit 02/28/19 21:00 02/28/19 20:22 Heparin SQ 5,000 unit Q12HR [facility] Administration Hydromorphone HCl 0.5 mg 02/28/19 14:32 Dilaudid IVP Q6HR PRN Severe Pain Ceftriaxone Sodium 1 gm/ 50 mls @ 100 mls/hr 03/01/19 09:00 Sodium Chloride IVPB Q24HR [facility] Vancomycin HCl 2,000 mg/ 500 mls @ 167 mls/hr 03/01/19 00:00 02/28/19 22:41 Sodium Chloride IVPB 167 mls/hr Q12H TEA Administration Insulin Aspart 0 unit 02/28/19 17:30 03/01/19 06:28 Novolog SQ 1 unit ACHS [facility] Administration Protocol Isosorbide Mononitrate 30 mg 03/01/19 09:00 Imdur PO DAILY [facility] Metformin HCl 500 mg 02/28/19 21:00 02/28/19 20:22 Glucophage PO 500 mg BID TEA Administration Miscellaneous Information 0 each 03/02/19 11:00 Vancomycin Trough Due MISCELLANE 03/02/19 11:01 DIRECTED ONE Nitroglycerin 0.4 mg 02/28/19 14:30 Nitrostat SUBLINGUAL Q5M PRN Chest Pain Pantoprazole Sodium 40 mg 03/01/19 07:30 03/01/19 06:29 Protonix PO 40 mg [id number] TEA Administration Temazepam 15 mg 02/28/19 14:32 02/28/19 22:41 Restoril PO 15 mg HS PRN Administration Insomnia Intake and Output 02/28/19 03/01/19 03/01/19 22:59 06:59 14:59 Intake Total 480 480 Balance 480 480 Intake: Oral 480 480 Other: Voiding Method Toilet Toilet # Voids 1 1 Weight 102.5 kg 03/01/19 05:38 03/01/19 05:38 Assessment and Plan Assessment: Assessment #1 abnormal cardiac enzyme. #2 right toe pain related to injury #3 CAD and status post a stenting #4 diabetes #5 dyslipidemia Plan #1 rule out acute coronary event. We'll follow-up with the serial cardiac enzymes. If the enzymes are trending up or consistent with acute coronary syndrome, I do recommend proceeding with coronary angiogram #2 follow-up on the echocardiogram. The patient is scheduled to undergo echo later on today. #3 continue the current medical regimen #4 infectious disease consult was placed #5 follow-up with the patient Thank you for allowing us participate in his care and we will continue following up with the patient
[2019-03-01] MEDS: ESCITALOPRAM 20 MG TAB PO SCH (08:57)
[2019-03-01] MEDS: HEPARIN SODIUM,PORCINE 5,000 UNIT/ML 1 ML VIAL SQ SCH ×2 (08:57→20:43)
[2019-03-01] MEDS: metFORMIN 500 MG TAB PO SCH ×2 (08:58→20:43)
[2019-03-01] MEDS: ISOSORBIDE MONONITRATE ER 30 MG TAB.ER.24H PO SCH (08:58)
[2019-03-01] MEDS: ATORVASTATIN 20 MG TAB PO SCH (08:58)
[2019-03-01] MEDS: ASPIRIN 81 MG PO SCH (09:06)
[2019-03-01 11:24] LABS: Glucose,Whole Blood 159 mg/dL (75-99)
[2019-03-01] MEDS: VANCOMYCIN 2,000 MG in SODIUM CHLORIDE 0.9% 500 ML 500 ML IVPB SCH (12:03)
[2019-03-01 16:30] LABS: Glucose,Whole Blood 153 mg/dL (75-99)
[2019-03-01 20:15] LABS: Glucose,Whole Blood 138 mg/dL (75-99)
[2019-03-02] MEDS: VANCOMYCIN 2,000 MG in SODIUM CHLORIDE 0.9% 500 ML 500 ML IVPB SCH ×2 (00:26→12:40)
--- NOTE | 2019-03-02 01:49 | P.PN ---
Subjective Progress Note Date: 03/01/19 Principal diagnosis: This is a 68 year old male that was admitted for right great toe infection with pain and swelling and is being closely monitored. Patient is currently on IV ant ibiotics in the form of Vancomycin and Rocephin. Patient had an indeterminate troponin level of 0.077 and is currently trending down. Cardiology is following closely. Patient denies any chest pain, shortness of breath, or palpitations at this time. patient is having right great toe pain and tenderness. Patient denies any nausea or vomiting at this time. Blood sugars are being monitored closely. Patient is afebrile at this time. Guarded prognosis. Objective - Vital Signs Vital signs: Vital Signs Temp 98.1 F 03/01/19 08:05 Pulse 60 03/01/19 11:25 Resp 16 03/01/19 11:25 BP 117/76 03/01/19 11:25 Pulse Ox 97 03/01/19 11:25 Intake & Output 02/28/19 03/01/19 03/01/19 18:59 06:59 18:59 Intake Total 680 089 6548 Balance 392 696 4358 Weight 101.605 kg 102.5 kg Intake: Intake, IV Titration 550 650 Amount Sodium Chloride 0.9% 1, 100 000 ml @ 100 mls/hr IV . Q10H STA Rx#:[id number] Vancomycin 2,000 mg In 500 500 Sodium Chloride 0.9% 500 ml 500 ml @ 167 mls/hr IVPB Q12H TEA Rx#: [id number] cefTRIAXone 1 gm In 50 50 Sodium Chloride 0.9% 50 ml @ 100 mls/hr IVPB Q24HR TEA Rx#:[id number] Oral 240 240 480 Other: Voiding Method Toilet Toilet # Voids 1 - Exam PHYSICAL EXAMINATION: GENERAL: The patient is alert and oriented x3, not in any acute distress. Obese. Vital signs are stable. Blood pressure is 140/75, pulse is 87, respirations are 16, temp is 98F, oxygen saturation is 98% on room air HEENT: Pupils are round and equally reacting to light. EOMI. No scleral icterus. No conjunctival pallor. Normocephalic, atraumatic. No pharyngeal erythema. No thyromegaly. CARDIOVASCULAR: S1 and S2 present. No murmurs, rubs, or gallops. PULMONARY: Diminished lung sounds in the bases, no wheezing or crackles. ABDOMEN: Soft, non-tender, normoactive bowel sounds. No palpable organomegaly. MUSCULOSKELETAL: No joint swelling or deformity. EXTREMITIES: No cyanosis, clubbing, or pedal edema. NEUROLOGICAL: Gross neurological examination did not reveal any focal deficits. SKIN: right great toe displays some erythema and swelling, with tenderness upon palpation of the surrounding tissue. - Labs CBC & Chem 7: 03/01/19 05:38 03/01/19 05:38 Labs: Abnormal Lab Results - Last 24 Hours (Table) 03/01/19 03/01/19 03/01/19 Range/Units 05:38 05:38 06:27 Chloride 109 H (98-107) mmol/L Glucose 132 H (74-99) mg/dL POC Glucose (mg/dL) 144 H (75-99) mg/dL Calcium 8.3 L (8.4-10.2) mg/dL Troponin I 0.042 H* (0.000-0.034) ng/mL 03/01/19 03/01/19 Range/Units 11:20 16:28 Chloride (98-107) mmol/L Glucose (74-99) mg/dL POC Glucose (mg/dL) 159 H 153 H (75-99) mg/dL Calcium (8.4-10.2) mg/dL Troponin I (0.000-0.034) ng/mL Microbiology - Last 24 Hours (Table) 02/28/19 10:48 Blood Culture - Preliminary Blood No Growth after 24 hours Assessment and Plan Assessment: Right big toe infection, cellulitis status post injury Troponin 0.077, indeterminate. Rule out acute non-ST segment elevation myocardial infarction History of coronary artery disease History of cerebrovascular accident/TIA Diabetes mellitus type 2 Gastroesophageal reflux disease Hypertension History of coronary artery disease, stent History of low back pain, degenerative joint disease History of depression History of THC GI prophylaxis: Protonix DVT prophylaxis: Heparin subQ every 12 hours Recommendations and discussion: Recommend continue current medications and symptomatic treatment. Patient is on broad spectrum antibiotics and awaiting infectious disease consult. Will continue to monitor vital signs and labs closely. Will continue to monitor blood glucose closely and treat accordingly. Cardiology was consulted for the elevated troponin and patient is to undergo an echo today. Will await report. guarded prognosis. Further recommendations to follow.
[2019-03-02] MEDS: PANTOPRAZOLE 40 MG TABLET PO SCH (06:12)
[2019-03-02 06:18] LABS: Basophils # (A) 0.1 k/uL (0-0.2); Basophils % (A) 1 %; Eosinophils # (A) 0.3 k/uL (0-0.7); Eosinophils % (A) 4 %; HGB 16.2 gm/dL (13.0-17.5); Lymphocytes # (A) 2.7 k/uL (1.0-4.8); Lymphocytes % (A) 35 %; MCHC 33.7 g/dL (31.0-37.0); Monocytes # (A) 0.4 k/uL (0-1.0); Monocytes % (A) 6 %; Neutrophils % (A) 53 %; Platelet Count 221 k/uL (150-450); RBC 5.06 m/uL (4.30-5.90); RDW 12.9 % (11.5-15.5); WBC 7.6 k/uL (3.8-10.6)
[2019-03-02 06:28] LABS: African American GFR (CKD) >90 (>60 ml/min/1.73 sqM); Anion Gap 5 mmol/L; Blood Urea Nitrogen 11 mg/dL (9-20); Calcium 8.9 mg/dL (8.4-10.2); Carbon Dioxide 24 mmol/L (22-30); Chloride 109 mmol/L (98-107); Glucose 129 mg/dL (74-99); Non-African American GFR(CKD) 82 (>60 ml/min/1.73 sqM); Potassium 4.9 mmol/L (3.5-5.1); Sodium 138 mmol/L (137-145)
[2019-03-02 06:48] LABS: Glucose,Whole Blood 152 mg/dL (75-99)
[2019-03-02] MEDS: INSULIN ASPART (NovoLOG) 100 UNIT/ML VIAL SQ SCH ×3 (06:52→16:43)
[2019-03-02] MEDS: metFORMIN 500 MG TAB PO SCH (08:19)
[2019-03-02] MEDS: ASPIRIN 81 MG PO SCH (08:19)
[2019-03-02] MEDS: ESCITALOPRAM 20 MG TAB PO SCH (08:19)
[2019-03-02] MEDS: HEPARIN SODIUM,PORCINE 5,000 UNIT/ML 1 ML VIAL SQ SCH (08:19)
[2019-03-02] MEDS: ISOSORBIDE MONONITRATE ER 30 MG TAB.ER.24H PO SCH (08:19)
[2019-03-02] MEDS: ATORVASTATIN 20 MG TAB PO SCH (08:19)
[2019-03-02 08:30] VITALS: TEMP 98.3
--- NOTE | 2019-03-02 09:13 | P.PN ---
Subjective Progress Note Date: 03/02/19 Principal diagnosis: Abnormal cardiac enzymes This is a pleasant 68-year-old gentleman with a past medical history significant for coronary artery disease and prior stenting, the details on that are unknown, the stenting was performed in 2010, diabetes, hypertension, and dyslipidemia, presented to the emergency room complaining of pain in the right toe. Currently the patient does not follow with any giving officer. He was moving a couch out of his portion when the edge of the couch fell on the right toenail. It pulled the right toenail out completely. The patient after that was experiencing severe pain. For the last few days, he was experiencing beside the pain swollen, redness, and edema in the right toenail and because of that he decided to come to the emergency room. He does not remember having any symptoms of syncope or presyncope, no symptoms of chest pain or chest discomfort, shortness of breath, dizziness, heart racing or heart fluttering. We involved in the care of the patient because her troponin was checked and came in to be abnormal. We only have one set of troponin. I am going to obtain 2 more sets to check the troponin trend. The patient does not have any other reason for abnormal troponin like tachycardia, hypotension, or abnormal kidney function. The EKG shows sinus rhythm without any significant ST or T-wave abnormalities. The ches t x-ray did not show any acute abnormalities. The right toe x-ray did not show any acute abnormalities. The rest of his blood work came in to be unremarkable. The patient underwent an echocardiogram in 2017 and that revealed normal LV function with evidence of mild aortic stenosis. On physical examination he definitely has right upper sternal border systolic murmur and left upper sternal systolic murmur as well. On follow-up with the patient today, 03/02/2019, he remains asymptomatic from the cardiac vascular standpoint overview. Currently he is on antibiotic for the right toe infection. Hemodynamically, he is slightly hypertensive with a heart rate in the 60s. I am going to add a small dose of VIET inhibitor was lisinopril to the current medical regimen. An echocardiogram was performed and we will follow-up on that. Objective - Vital Signs Vital signs: Vital Signs Temp 98.3 F 03/02/19 08:00 Pulse 67 03/02/19 08:00 Resp 16 03/02/19 08:00 BP 182/101 08/13/19 08:00 Pulse Ox 98 03/02/19 08:00 Intake & Output 03/01/19 03/02/19 03/02/19 18:59 06:59 18:59 Intake Total 1130 990 240 Balance 1130 990 240 Weight 101 kg Intake: Intake, IV Titration 650 500 Amount Sodium Chloride 0.9% 1, 100 000 ml @ 100 mls/hr IV . Q10H STA Rx#:[id number] Vancomycin 2,000 mg In 500 500 Sodium Chloride 0.9% 500 ml 500 ml @ 167 mls/hr IVPB Q12H TEA Rx#: [id number] cefTRIAXone 1 gm In 50 Sodium Chloride 0.9% 50 ml @ 100 mls/hr IVPB Q24HR TEA Rx#:[id number] Oral 480 490 240 Other: Voiding Method Toilet Toilet # Voids 2 # Bowel Movements 1 - Constitutional General appearance: Present: no acute distress - Respiratory Respiratory: bilateral: CTA - Cardiovascular Rhythm: regular Heart sounds: normal: S1, S2 Abnormal Heart Sounds: Present: systolic murmur - Labs CBC & Chem 7: 03/02/19 05:26 03/02/19 05:26 Labs: Abnormal Lab Results - Last 24 Hours (Table) 03/01/19 03/01/19 03/01/19 Range/Units 05:38 11:20 16:28 Chloride (98-107) mmol/L Glucose (74-99) mg/dL POC Glucose (mg/dL) 159 H 153 H (75-99) mg/dL Troponin I 0.042 H* (0.000-0.034) ng/mL 03/01/19 03/02/19 03/02/19 Range/Units 20:14 05:26 06:47 Chloride 109 H (98-107) mmol/L Glucose 129 H (74-99) mg/dL POC Glucose (mg/dL) 138 H 152 H (75-99) mg/dL Troponin I (0.000-0.034) ng/mL Microbiology - Last 24 Hours (Table) 02/28/19 10:48 Blood Culture - Preliminary Blood No Growth after 24 hours Assessment and Plan Assessment: Assessment #1 abnormal cardiac enzyme. #2 right toe pain related to injury/infection #3 CAD and status post a stenting #4 diabetes #5 dyslipidemia Plan #1 continue the current medical regimen #2 add lisinopril to the current medical regimen #3 follow-up on the echocardiogram #4 follow-up with the patient
[2019-03-02] MEDS ORDERED: VANCOMYCIN TROUGH DUE 1 EACH MISC MISCELLANE ONE (11:00)
[2019-03-02 11:28] LABS: Glucose,Whole Blood 136 mg/dL (75-99)
--- NOTE | 2019-03-02 14:22 | CDI ---
In responding to this query, please exercise your independent professional judgment. The [facility] Coding Staff and Clinical Documentation Specialists appreciate your assistance in clarifying documentation, maintaining compliance with coding guidelines, accurately documenting patients condition and capturing severity of illness. The fact that a question is asked does not imply that any particular answer is desired or expected. Communication forms are a method of clarifying documentation and are made part of the Legal Health Record. Thank you in advance for your clarification. Last Revision: February 2018 Documentation Clarification Form Date: 03/02/2019 CDS: Tova Rosa RN, CCDS Admit Date: 03/01/2019 Patient Name: Jesus Reddy ATTENTION: The Clinical Documentation Specialists (CDI) and [facility] Coding Staff appreciate your assistance in clarifying documentation. Please respond to the clarification below the line at the bottom and electronically sign. The CDI & [facility] Coding staff will review the response and follow-up if needed. Please note: Queries are made part of the Legal Health Record. If you have any questions, please contact the author of this message via ITS. Dr. Gonzalez The patient has diabetes Type 2 as indicated on the H & P . History/Risk Factors: 68 year old male presents to the ED with Right Toe Pain after a nail avulsion with injury. Clinical Indicators: Medical history CAD, CVA, type 2 DM, HTN, AL Treatment: Rocephin ivpb , Novolog , Metformin , Vancomycin ivpb Please document any body system complications or specific manifestations related to the diabetes: v Right Big Toe Cellulitis related to Type 2 DM Right Big Toe Cellulitis not related to Type 2 DM OTHER Undetermined (Last Revision: October 2017) Right Big Toe Cellulitis related to Type 2 DM MTDD
[2019-03-02 16:13] VITALS: BP 138/80; PULSE 70; RESP 13
[2019-03-02 16:39] LABS: Glucose,Whole Blood 134 mg/dL (75-99)
[2019-03-03] MEDS ORDERED: VANCOMYCIN 1,750 MG in SODIUM CHLORIDE 0.9% 500 ML 500 ML IVPB SCH ×2
[2019-03-03] MEDS ORDERED: LISINOPRIL 2.5 MG TAB PO SCH (09:00)
--- NOTE | 2019-03-03 11:51 | ECHOF ---
Referral Reason:[facility] MEASUREMENTS -------- HEIGHT: 165.1 cm WEIGHT: 102.1 kg BP: 135/82 RVIDd: 2.6 cm (< 3.3) IVSd: 1.2 cm (0.6 - 1.1) LVIDd: 4.5 cm (3.9 - 5.3) LVPWd: 1.1 cm (0.6 - 1.1) IVSs: 1.5 cm LVIDs: 2.9 cm LVPWs: 1.6 cm LA Diam: 3.3 cm (2.7 - 3.8) LAESV Index (A-L): 24.85 ml/m Ao Diam: 3.7 cm (2.0 - 3.7) AV Cusp: 1.4 cm (1.5 - 2.6) LA Diam: 4.1 cm (2.7 - 3.8) MV EXCURSION: 15.618 mm (> 18.000) MV EF SLOPE: 97 mm/s (70 - 150) EPSS: 1.1 cm MV E Phillip: 0.61 m/s MV DecT: 230 ms MV A Phillip: 0.76 m/s MV E/A Ratio: 0.80 AV maxP.74 mmHg AV meanP.29 mmHg AR PHT: 719 ms FINDINGS -------- This was a technically adequate study. The left ventricular size is normal. There is mild concentric left ventricular hypertrophy. Overa ll left ventricular systolic function is normal with, an EF between 55 - 60 %. The diastolic fillin g pattern is normal for the age of the patient 8.38. The right ventricle is normal in size. The left atrial size is normal. The right atrial size is normal. There is mild aortic regurgitation. There is mild aortic stenosis present. Peak/mean gradient acr oss the Aortic Valve is 17.74mmHg / 9.29mmHg. Mild mitral annular calcification present. Mild mitral regurgitation is present. Mild tricuspid regurgitation present. There is no evidence of pulmonary hypertension. The right v entricular systolic pressure, as measured by Doppler, is {RVSP}. There is no pulmonic regurgitation present. The aortic root size is normal. There is no pericardial effusion. rEQUISITION FOR READING THE ECHO RECEIVED ON march 03, 2019. CONCLUSIONS -------- 1. This was a technically adequate study. 2. The left ventricular size is normal. 3. There is mild concentric left ventricular hypertrophy. 4. Overall left ventricular systolic function is normal with, an EF between 55 - 60 %. 5. The diastolic filling pattern is normal for the age of the patient 8.38 6. The right ventricle is normal in size. 7. The left atrial size is normal. 8. The right atrial size is normal. 9. There is mild aortic regurgitation. 10. There is mild aortic stenosis present. 11. Peak/mean gradient across the Aortic Valve is 17.74mmHg / 9.29mmHg. 12. Mild mitral annular calcification present. 13. Mild mitral regurgitation is present. 14. Mild tricuspid regurgitation present. 15. There is no evidence of pulmonary hypertension. 16. The right ventricular systolic pressure, as measured by Doppler, is {RVSP}. 17. There is no pulmonic regurgitation present. 18. The aortic root size is normal. 19. There is no pericardial effusion. LABORATORY TECHNICAL SPECIALIST: Maureen Anthony RDCS
--- NOTE | 2019-03-03 15:03 | P.DS ---
Providers Date of admission: 03/01/19 13:51 Expected date of discharge: 03/02/19 Attending physician: Bishop Gonzalez Consults: 02/28/19 14:15 Consult Physician Routine Consulting Provider: Bryant Parekh Consult Reason/Comments: elevated trop Do you want consulting provider notified?: Yes, Notify in am 02/28/19 14:16 Consult Physician Routine Consulting Provider: Jabier Huntley Consult Reason/Comments: infected right great toe Do you want consulting provider notified?: Yes, Notify in am Primary care physician: [facility] Course: Final diagnosis Right big toe infection, cellulitis status post injury Troponin 0.077, indeterminate. Rule out acute non-ST segment elevation myocardial infarction History of coronary artery disease History of CVA/TIA Diabetes mellitus type 2 Gastroesophageal reflux disease Hypertension History of coronary artery disease, stent History of low back pain, degenerative joint disease History of depression History of THC GI prophylaxis with Protonix DVT prophylaxis with subq heparin History of present illness This is a 68-year-old male that was admitted with a right great toe infection with pain and swelling. Patient was on IV antibiotics in the form of vancomycin and Rocephin. Patient will go home on oral doxycycline 100 mg twice a day for 1 week. During hospitalization he was found to have an indeterminate troponin level in a series of 3 that were trending down. Patient did undergo an echocardiogram per cardiology recommendations with an EF of 55-60%. Patient denies any chest pain, shortness of breath, or palpitations. Patient denies any vomiting or nausea at this time and tolerating diet well. Patient remains afebrile. Patient is eager to go home. Patient is currently stable and being discharged home. Guarded prognosis. On exam vital signs are stable. Blood pressure is 129/76, pulse is 76, respirations are 16, pulse ox is 96% on room air, temperature is 98.3F. Cardio S1 and S2 are normal. Respiratory system is clear to auscultation. Abdomen is soft and nontender. Nervous system shows no focal deficits and gait is steady. Please refer to medication reconciliation sheet for a list of medications. Patient Condition at Discharge: Good Plan - Discharge Summary New Discharge Prescriptions: New Doxycycline [Vibramycin] 100 mg PO BID 5 Days #10 cap Lisinopril [Zestril] 2.5 mg PO DAILY #30 tab Continue metFORMIN HCL [Glucophage] 500 mg PO BID Aspirin 81 mg PO DAILY Atorvastatin [Lipitor] 20 mg PO DAILY Escitalopram [Lexapro] 20 mg PO DAILY Nitroglycerin Sl Tabs [Nitrostat] 0.4 mg SUBLINGUAL Q5M PRN PRN Reason: Chest Pain Isosorbide Mononitrate ER [Imdur] 30 mg PO DAILY Discharge Medication List Aspirin 81 mg PO DAILY 07/09/18 [History] metFORMIN HCL [Glucophage] 500 mg PO BID 07/09/18 [History] Atorvastatin [Lipitor] 20 mg PO DAILY 02/28/19 [History] Escitalopram [Lexapro] 20 mg PO DAILY 02/28/19 [History] Isosorbide Mononitrate ER [Imdur] 30 mg PO DAILY 02/28/19 [History] Nitroglycerin Sl Tabs [Nitrostat] 0.4 mg SUBLINGUAL Q5M PRN 02/28/19 [History] Doxycycline [Vibramycin] 100 mg PO BID 5 Days #10 cap 03/02/19 [Rx] Lisinopril [Zestril] 2.5 mg PO DAILY #30 tab 03/02/19 [Rx] Follow up Appointment(s)/Referral(s): Paul Castro MD [STAFF PHYSICIAN] - 03/23/19 2:45 pm (With Constance HAAS) [facility] [Primary Care Provider] - 1-2 days (Left message to return call for a follow up appointment. 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 Activity limited until follow-up continue taking all of antibiotics until complete. Follow up with primary care provider this week. follow up with cardiology on scheduled appointment. Discharge Disposition: HOME SELF-CARE
== END 2019-03-02 17:01 | disposition home or self-care (01) | DRG 637 ==
LOC: EC 10:16 → 3SCARD 11:42 → OBSVTOIN 03-01 13:51
PROVIDERS: ADMIT Hospitalist; ATTEND Hospitalist
DX: E11.628 Type 2 diabetes mellitus with other skin complications (principal); I21.4 Non-ST elevation (NSTEMI) myocardial infarction; L02.611 Cutaneous abscess of right foot; L03.031 Cellulitis of right toe; Z79.84 Long term (current) use of oral hypoglycemic drugs; Z87.891 Personal history of nicotine dependence; E78.5 Hyperlipidemia, unspecified; F32.9 Major depressive disorder, single episode, unspecified; I10 Essential (primary) hypertension; I25.10 Atherosclerotic heart disease of native coronary artery without angina pectoris; I25.2 Old myocardial infarction; K21.9 Gastro-esophageal reflux disease without esophagitis; L02.92 Furuncle, unspecified; S91.201A Unspecified open wound of right great toe with damage to nail, initial encounter; W20.8XXA Other cause of strike by thrown, projected or falling object, initial encounter; Z79.82 Long term (current) use of aspirin; Z79.899 Other long term (current) drug therapy; Z86.73 Personal history of transient ischemic attack (TIA), and cerebral infarction without residual deficits; Z95.5 Presence of coronary angioplasty implant and graft; G89.29 Other chronic pain; M54.5 Low back pain
CPT/HCPCS: 36415; 80048; 80053; 80202; 83605; 83735; 84100; 84484; 85025; 85610; 85730; 87040; 93005; 93306; 96361; 96365; 96375; 99285

== ENCOUNTER 2021-03-06 16:59 | Emergency (ER) | payer MEDICARE, OTHER ==
[2021-03-06 17:23] VITALS: BP 113/66; PULSE 87; RESP 20; TEMP 98.1
[2021-03-06] MEDS ORDERED: LIDOCAINE 1% INJ 10MG/ML (20 ML MDV) SQ ONE (19:01)
--- NOTE | 2021-03-06 19:16 | XR ---
EXAMINATION TYPE: XR toes LT DATE OF EXAM: 03/06/2021 COMPARISON: NONE HISTORY: Trauma. Pain TECHNIQUE: 3 views FINDINGS: I see no fracture nor dislocation. There is elevation of the nail. IMPRESSION: No evidence of a fracture of the big toe.
--- NOTE | 2021-03-06 19:45 | ED ---
Lower Extremity Injury HPI - General Chief Complaint: Extremity Injury, Lower Stated Complaint: Lt Toe Issues Source: patient Mode of arrival: ambulatory Limitations: no limitations - History of Present Illness Initial Comments: 70-year-old male presents to emergency Department with chief complaint of toenail removal. Patient reports about 1 week ago his toenail began to come up and now it is getting stuck on his shoes and socks. Patient reports it is painful and getting worse. He denies any discharge from region. States she has toenail infection all of his toes so they're quite thick and brittle. He denies any associated paresthesias or pain in the actual foot. - Related Data Home Medications Medication Instructions Recorded Confirmed Aspirin 81 mg PO DAILY 07/09/18 02/28/19 metFORMIN HCL [Glucophage] 500 mg PO BID 07/09/18 02/28/19 Atorvastatin [Lipitor] 20 mg PO DAILY 02/28/19 02/28/19 Escitalopram [Lexapro] 20 mg PO DAILY 02/28/19 02/28/19 Isosorbide Mononitrate ER [Imdur] 30 mg PO DAILY 02/28/19 02/28/19 Nitroglycerin Sl Tabs [Nitrostat] 0.4 mg SUBLINGUAL Q5M PRN 02/28/19 02/28/19 Previous Rx's Medication Instructions Recorded Doxycycline [Vibramycin] 100 mg PO BID 5 Days #10 cap 03/02/19 lisinopriL [Zestril] 2.5 mg PO DAILY #30 tab 03/02/19 Allergies Allergy/AdvReac Type Severity Reaction Status Date / Time No Known Allergies Allergy Verified 03/06/21 17:23 Review of Systems ROS Statement: Those systems with pertinent positive or pertinent negative responses have been documented in the HPI. ROS Other: All systems not noted in ROS Statement are negative. Past Medical History Past Medical History: Coronary Artery Disease (CAD), CVA/TIA, Diabetes Mellitus, GERD/Reflux, Hyperlipidemia, Hypertension, Musculoskeletal Disorder Additional Past Medical History / Comment(s): NIDDM type II, chronic low back pain History of Any Multi-Drug Resistant Organisms: None Reported Past Surgical History: Back Surgery, Heart Catheterization With Stent, Orthopedic Surgery, Tonsillectomy Additional Past Surgical History / Comment(s): left and right rotator cuff, LOWER BACK LASER SX(NERVES BURNED), multiple pain procedures on back Past Anesthesia/Blood Transfusion Reactions: No Reported Reaction Date of Last Stent Placement:: 05/23/11 Past Psychological History: Depression Smoking Status: Former smoker Past Alcohol Use History: None Reported Past Drug Use History: Marijuana - Past Family History Father Family Medical History: Dementia Additional Family Medical History / Comment(s): AT AGE 78 COMPLICATIONS FROM ALZHIEMERS Mother Family Medical History: Dementia Additional Family Medical History / Comment(s): AT AGE 90'S from dementia. General Exam Limitations: no limitations General appearance: alert, in no apparent distress Head exam: Present: atraumatic, normocephalic, normal inspection Eye exam: Present: normal appearance Pupils: Present: normal accommodation ENT exam: Present: normal exam, normal oropharynx, mucous membranes moist Neck exam: Present: normal inspection, full ROM. Absent: tenderness, meningismus Respiratory exam: Present: normal lung sounds bilaterally. Absent: respiratory distress Cardiovascular Exam: Present: regular rate, normal rhythm, normal heart sounds GI/Abdominal exam: Present: soft. Absent: distended, tenderness Extremities exam: Present: full ROM, tenderness (Big toe tenderness), normal capillary refill. Absent: normal inspection (Fungal infection noted in all toes. The toenail on the big toe seems to be almost fully off the nailbed. There is no discharge or any infection at this time. There is slight ingrown toenail left side.) Back exam: Present: normal inspection. Absent: full ROM Neurological exam: Present: alert, oriented X3 Psychiatric exam: Present: normal affect, normal mood Skin exam: Present: warm, dry, intact, normal color Course Vital Signs 03/06/21 17:20 Temperature 98.1 F Pulse Rate 87 Respiratory 20 Rate Blood Pressure 113/66 O2 Sat by Pulse 99 Oximetry Medical Decision Making - Medical Decision Making 70-year-old male presents to emergency prompt chief complaint of toenail coming off. Physical examination, the toenail is partially off. He does have fungal infection of all the toes. I was able to trim the toenail partially removed the toenail. And I was able to bring down with some gauze and tape. Advised him to apply some warm water rinses. Advised follow up PCP. Disposition Clinical Impression: Ingrown toenail Disposition: HOME SELF-CARE Instructions (If sedation given, give patient instructions): Ingrown Nail (ED) Additional Instructions: Please return to the Emergency Department if symptoms worsen or any other concerns. Is patient prescribed a controlled substance at d/c from ED?: No Referrals: [facility] [Primary Care Provider] - 1-2 days Time of Disposition: 19:45
== END 2021-03-06 20:22 | disposition home or self-care (01) ==
LOC: EC 16:59
DX: L60.0 Ingrowing nail (principal); E11.9 Type 2 diabetes mellitus without complications; I10 Essential (primary) hypertension; E78.5 Hyperlipidemia, unspecified; I25.10 Atherosclerotic heart disease of native coronary artery without angina pectoris; K21.9 Gastro-esophageal reflux disease without esophagitis; F32.9 Major depressive disorder, single episode, unspecified; F12.90 Cannabis use, unspecified, uncomplicated; Z79.84 Long term (current) use of oral hypoglycemic drugs; Z79.82 Long term (current) use of aspirin; Z79.899 Other long term (current) drug therapy; Z87.891 Personal history of nicotine dependence; Z86.73 Personal history of transient ischemic attack (TIA), and cerebral infarction without residual deficits
CPT/HCPCS: 11730; 99283

== ENCOUNTER 2021-05-04 12:29 | Emergency (ER) | payer MEDICARE ==
[2021-05-04 12:35] VITALS: RESP 18
[2021-05-04] MEDS ORDERED: predniSONE 50 MG TAB PO STA (14:23)
[2021-05-04] MEDS ORDERED: KETOROLAC 15 MG/ML 1 ML VIAL IM STA (14:23)
--- NOTE | 2021-05-04 15:15 | ED ---
General Adult HPI - General Chief complaint: Back Pain/Injury Stated complaint: R Leg Pain Time Seen by Provider: 05/04/21 12:30 Source: patient, RN notes reviewed, old records reviewed Mode of arrival: ambulatory Limitations: no limitations - History of Present Illness Initial comments: This is a 70-year-old male who presents emergency Department complaining of right lower back pain for the last week or so. Patient states pain radiates down the right leg. Patient denies any urinary continence urinary retention. Patient denies any numbness or weakness. Patient denies any recent injury. Patient denies any recent fever chills. Patient denies abdominal pain. Patient denies any dysuria hematuria urinary frequency. - Related Data Home Medications Medication Instructions Recorded Confirmed Aspirin 81 mg PO DAILY 07/09/18 02/28/19 metFORMIN HCL [Glucophage] 500 mg PO BID 07/09/18 02/28/19 Atorvastatin [Lipitor] 20 mg PO DAILY 02/28/19 02/28/19 Escitalopram [Lexapro] 20 mg PO DAILY 02/28/19 02/28/19 Isosorbide Mononitrate ER [Imdur] 30 mg PO DAILY 02/28/19 02/28/19 Nitroglycerin Sl Tabs [Nitrostat] 0.4 mg SUBLINGUAL Q5M PRN 02/28/19 02/28/19 Previous Rx's Medication Instructions Recorded Doxycycline [Vibramycin] 100 mg PO BID 5 Days #10 cap 03/02/19 lisinopriL [Zestril] 2.5 mg PO DAILY #30 tab 03/02/19 predniSONE [Deltasone] 40 mg PO DAILY #8 tab 05/04/21 Allergies Allergy/AdvReac Type Severity Reaction Status Date / Time No Known Allergies Allergy Verified 05/04/21 12:31 Review of Systems ROS Statement: Those systems with pertinent positive or pertinent negative responses have been documented in the HPI. ROS Other: All systems not noted in ROS Statement are negative. Past Medical History Past Medical History: Coronary Artery Disease (CAD), CVA/TIA, Diabetes Mellitus, GERD/Reflux, Hyperlipidemia, Hypertension, Musculoskeletal Disorder Additional Past Medical History / Comment(s): NIDDM type II, chronic low back pain History of Any Multi-Drug Resistant Organisms: None Reported Past Surgical History: Back Surgery, Heart Catheterization With Stent, Orthopedic Surgery, Tonsillectomy Additional Past Surgical History / Comment(s): left and right rotator cuff, LOWER BACK LASER SX(NERVES BURNED), multiple pain procedures on back Past Anesthesia/Blood Transfusion Reactions: No Reported Reaction Date of Last Stent Placement:: 05/23/11 Past Psychological History: Depression Smoking Status: Former smoker Past Alcohol Use History: None Reported Past Drug Use History: Marijuana - Past Family History Father Family Medical History: Dementia Additional Family Medical History / Comment(s): AT AGE 78 COMPLICATIONS FROM ALZHIEMERS Mother Family Medical History: Dementia Additional Family Medical History / Comment(s): AT AGE 90'S from dementia. General Exam - General Exam Comments Initial Comments: GENERAL: Patient is well-developed and well-nourished. Patient is nontoxic and well- hydrated and is in mild distress. ENT: Neck is soft and supple. No significant lymphadenopathy is noted. Oropharynx is clear. Moist mucous membranes. Neck has full range of motion without eliciting any pain. EYES: The sclera were anicteric and conjunctiva were pink and moist. Extraocular movements were intact and pupils were equal round and reactive to light. Eyelids were unremarkable. PULMONARY: Unlabored respirations. Good breath sounds bilaterally. No audible rales rhonchi or wheezing was noted. CARDIOVASCULAR: There is a regular rate and rhythm without any murmurs gallops or rubs. ABDOMEN: Soft and nontender with normal bowel sounds. SKIN: Skin is clear with no lesions or rashes and otherwise unremarkable. NEUROLOGIC: Patient is alert and oriented x3. Cranial nerves II through XII are grossly intact. Motor and sensory are also intact. Normal speech, volume and content. Symmetrical smile. Straight leg test is normal bilaterally. Perineum sensation is normal MUSCULOSKELETAL: Normal extremities with adequate strength and full range of motion. No lower extremity swelling or edema. No calf tenderness. LYMPHATICS: No significant lymphadenopathy is noted PSYCHIATRIC: Normal psychiatric evaluation. Limitations: no limitations Course Vital Signs 05/04/21 12:31 Temperature 97.8 F Pulse Rate 74 Respiratory 18 Rate Blood Pressure 145/90 O2 Sat by Pulse 97 Oximetry Medical Decision Making - Medical Decision Making X-ray shows no acute fractures. There is some foraminal narrowing Disposition Clinical Impression: Sciatica Disposition: HOME SELF-CARE Condition: Good Instructions (If sedation given, give patient instructions): Sciatica (ED) Prescriptions: predniSONE [Deltasone] 40 mg PO DAILY #8 tab Is patient prescribed a controlled substance at d/c from ED?: No Referrals: [facility] [Primary Care Provider] - 1-2 days Time of Disposition: 15:14
--- NOTE | 2021-05-04 15:32 | XR ---
EXAM TYPE: LUMBAR SPINE X RAY SERIES COMPARISON: NONE HISTORY: Pain TECHNIQUE: 4 views are submitted. FINDINGS: Alignment is anatomic. The pedicles are intact. The transverse processes are intact. There is no s pondylolysis or spondylolisthesis. Facet arthropathy L4-5 and L5-S1. Degenerative disc disease. Athe rosclerotic change aorta. Hypertrophic changes of the spine. IMPRESSION: 1. Degenerative disc disease and facet arthropathy lower lumbar spine..
[2021-05-04 15:44] VITALS: BP 134/81; PULSE 73; TEMP 97.7
== END 2021-05-04 15:30 | disposition home or self-care (01) ==
LOC: EC 12:29
DX: M54.41 Lumbago with sciatica, right side (principal); E11.9 Type 2 diabetes mellitus without complications; I10 Essential (primary) hypertension; I25.10 Atherosclerotic heart disease of native coronary artery without angina pectoris; E78.5 Hyperlipidemia, unspecified; K21.9 Gastro-esophageal reflux disease without esophagitis; F32.9 Major depressive disorder, single episode, unspecified; F12.90 Cannabis use, unspecified, uncomplicated; Z87.891 Personal history of nicotine dependence; Z79.84 Long term (current) use of oral hypoglycemic drugs; Z79.82 Long term (current) use of aspirin; Z79.52 Long term (current) use of systemic steroids; Z79.899 Other long term (current) drug therapy
CPT/HCPCS: 96372 ×2; 99283 ×2; 72110; J1885; J7512

== ENCOUNTER 2022-04-25 16:01 | Emergency (ER) | payer MEDICARE, OTHER ==
[2022-04-25 16:11] VITALS: BP 155/102; PULSE 73; RESP 20; TEMP 97.7
[2022-04-25 16:40] LABS: Basophils # (A) 0.1 k/uL (0-0.2); Basophils % (A) 1 %; Eosinophils # (A) 0.4 k/uL (0-0.7); Eosinophils % (A) 4 %; HCT 44.9 % (39.0-53.0); HGB 15.9 gm/dL (13.0-17.5); Lymphocytes # (A) 3.7 k/uL (1.0-4.8); Lymphocytes % (A) 40 %; MCH 32.6 pg (25.0-35.0); MCHC 35.4 g/dL (31.0-37.0); Mean Platelet Volume 7.8; Monocytes # (A) 0.4 k/uL (0-1.0); Monocytes % (A) 4 %; Neutrophils # (A) 4.5 k/uL (1.3-7.7); Neutrophils % (A) 48 %; Platelet Count 250 k/uL (150-450); RBC 4.88 m/uL (4.30-5.90); RDW 13.1 % (11.5-15.5); WBC 9.3 k/uL (3.8-10.6)
[2022-04-25 16:41] LABS: ALT 20 U/L (4-49); AST 21 U/L (17-59); African American GFR (CKD) >90 (>60 ml/min/1.73 sqM); Albumin 4.4 g/dL (3.5-5.0); Alkaline Phosphatase 79 U/L (38-126); Anion Gap 12 mmol/L; Blood Urea Nitrogen 19 mg/dL (9-20); Calcium 9.1 mg/dL (8.4-10.2); Carbon Dioxide 19 mmol/L (22-30); Chloride 105 mmol/L (98-107); Glucose 169 mg/dL (74-99); Non-African American GFR(CKD) 85 (>60 ml/min/1.73 sqM); Potassium 4.6 mmol/L (3.5-5.1); Sodium 136 mmol/L (137-145); Total Bilirubin 0.3 mg/dL (0.2-1.3); Total Protein 6.8 g/dL (6.3-8.2)
[2022-04-25 16:46] LABS: INR 0.9 (<1.2); Partial Thromboplastin Time 24.8 sec (22.0-30.0); Prothrombin Time 10.1 sec (9.0-12.0)
== END 2022-04-25 21:15 | disposition left against medical advice (07) ==
LOC: EC 16:01
DX: Z53.21 Procedure and treatment not carried out due to patient leaving prior to being seen by health care provider (principal)
CPT/HCPCS: 36415; 80053; 84484; 85025; 85610; 85730; 93005; 99499

== ENCOUNTER 2024-02-22 09:57 | Observation (INO) | payer MEDICARE ==
--- NOTE | 2024-02-22 10:25 | ED ---
Chest Pain HPI - General Chief Complaint: Chest Pain Stated Complaint: chest pain Time Seen by Provider: 02/22/24 10:02 Source: patient, RN notes reviewed Mode of arrival: ambulatory Limitations: no limitations - History of Present Illness Initial Comments: 73-year-old male presents emergency department chief complaint of chest pain. Patient states that he has had pain since stabbing pressure type pain in his chest. He does have prior cardiac stent, history of CVA hypertension hyperlipidemia diabetes. Patient states he had small mitral and did not try them. Patient states he has minimal shortness of breath no significant diaphoresis. Denies abdominal pain no back pain usual. - Related Data Home Medications Medication Instructions Recorded Confirmed Aspirin 325 mg PO DAILY 02/22/24 02/22/24 Atorvastatin [Lipitor] 40 mg PO HS 02/22/24 02/22/24 Empagliflozin [Jardiance] 25 mg PO DAILY 02/22/24 02/22/24 QUEtiapine FUMARATE [SEROquel] 300 mg PO HS 02/22/24 02/22/24 Venlafaxine HCl ER [Effexor Xr] 225 mg PO DAILY 02/22/24 02/22/24 metFORMIN HCL [Glucophage] 1,000 mg PO BID 02/22/24 02/22/24 Allergies Allergy/AdvReac Type Severity Reaction Status Date / Time No Known Allergies Allergy Verified 02/22/24 12:43 Review of Systems ROS Statement: Those systems with pertinent positive or pertinent negative responses have been documented in the HPI. ROS Other: All systems not noted in ROS Statement are negative. EKG Findings - EKG Comments: EKG Findings:: He performed at 10: 07 sinus rhythm rate of 76 [place] 167 QRS 111 QT/QTc 377/407 - EKG Results: EKG: interpreted by GUANAKITO Past Medical History Past Medical History: Coronary Artery Disease (CAD), CVA/TIA, Diabetes Mellitus, GERD/Reflux, Hyperlipidemia, Hypertension, Musculoskeletal Disorder Additional Past Medical History / Comment(s): NIDDM type II, chronic low back pain History of Any Multi-Drug Resistant Organisms: None Reported Past Surgical History: Back Surgery, Heart Catheterization With Stent, Or thopedic Surgery, Tonsillectomy Additional Past Surgical History / Comment(s): left and right rotator cuff, LOWER BACK LASER SX(NERVES BURNED), multiple pain procedures on back Past Anesthesia/Blood Transfusion Reactions: No Reported Reaction Date of Last Stent Placement:: 05/23/11 Past Psychological History: Depression Smoking Status: Former smoker Past Alcohol Use History: None Reported Past Drug Use History: Marijuana - Past Family History Father Family Medical History: Dementia Additional Family Medical History / Comment(s): AT AGE 78 COMPLICATIONS FROM ALZHIEMERS Mother Family Medical History: Dementia Additional Family Medical History / Comment(s): AT AGE 90'S from dementia. General Exam Limitations: no limitations General appearance: alert, in no apparent distress Head exam: Present: atraumatic, normocephalic, normal inspection Neck exam: Present: normal inspection. Absent: tenderness, meningismus, lymphadenopathy Respiratory exam: Present: normal lung sounds bilaterally. Absent: respiratory distress, wheezes, rales, rhonchi, stridor Cardiovascular Exam: Present: regular rate, normal rhythm, normal heart sounds. Absent: systolic murmur, diastolic murmur, rubs, gallop, clicks GI/Abdominal exam: Present: soft, normal bowel sounds. Absent: distended, tenderness, guarding, rebound, rigid Back exam: Absent: CVA tenderness (R), CVA tenderness (L) Course Vital Signs 02/22/24 02/22/24 02/22/24 09:57 10:30 13:06 Temperature 97.4 F L Pulse Rate 67 75 74 Respiratory 18 18 20 Rate Blood Pressure 104/71 121/90 O2 Sat by Pulse 97 98 98 Oximetry Chest Pain MDM - MDM Was pt. sent in by a medical professional or institution (, PA, NETWORK ACCOUNT MANAGER, urgent care, hospital, or senior living...) When possible be specific @ -No Did you speak to anyone other than the patient for history (EMS, parent, family, police, friend...)? What history was obtained from this source @ -No Did you review nursing and triage notes (agree or disagree)? Why? @ -I reviewed and agree with nursing and triage notes Were old charts reviewed (outside hosp., previous admission, EMS record, old EKG, old radiological studies, urgent care reports/EKG's, senior living records)? Report findings @ -No old charts were reviewed Differential Diagnosis (chest pain, altered mental status, abdominal pain women, abdominal pain men, vaginal bleeding, weakness, fever, dyspnea, syncope, headache, dizziness, GI bleed, back pain, seizure, CVA, palpatations, mental health, musculoskeletal)? @ -Differential Chest Pain: Stable Angina, Unstable Angina, STEMI, NSTEMI Aortic Dissection, Pneumothorax, Musculoskeletal, Esophageal Spasm GERD, Cholecystitis, Pancreatitis, Zoster, this is not meant to be an all-inclusive list. EKG interpreted by me (3pts min.). @ -As above X-rays interpreted by me (1pt min.). @ -Chest x-ray 2 view shows chronic changes no acute process CT interpreted by me (1pt min.). @ -None done U/S interpreted by me (1pt. min.). @ -None done What testing was considered but not performed or refused? (CT, X-rays, U/S, labs)? Why? @ -None What meds were considered but not given or refused? Why? @ -None Did you discuss the management of the patient with other professionals (professionals i.e. , PA, NETWORK ACCOUNT MANAGER, lab, RT, psych nurse, social welfare research worker, lift operator, teacher, radiological defense officer, business case analyst)? Give summary @ -EMH for admission Was smoking cessation discussed for >3mins.? @ -No Was critical care preformed (if so, how long)? @ -No Were there social determinants of health that impacted care today? How? (Homelessness, low income, unemployed, alcoholism, drug addiction, transportation, low edu. Level, literacy, decrease access to med. care, group home, rehab)? @ -No Was there de-escalation of care discussed even if they declined (Discuss DNR or withdrawal of care, Hospice)? DNR status @ -No What co-morbidities impacted this encounter? (DM, HTN, Smoking, COPD, CAD, Cancer, CVA, ARF, Chemo, Hep., AIDS, mental health diagnosis, sleep apnea, morbid obesity)? @ CAD, hyperlipidemia hypertension Was patient admitted / discharged? Hospital course, mention meds given and route, prescriptions, significant lab abnormalities, going to OR and other pertinent info. @ -Admitted patient presented for chest pain initial troponin is negative. Patient has multiple risk factors will be admitted for cardiac rule out Undiagnosed new problem with uncertain prognosis? @ -No Drug Therapy requiring intensive monitoring for toxicity (Heparin, Nitro, Insulin, Cardizem)? @ -No Were any procedures done? @ -No Diagnosis/symptom? @ -[Chest pain Acute, or Chronic, or Acute on Chronic? @ -Acute Uncomplicated (without systemic symptoms) or Complicated (systemic symptoms)? @ -complicated Side effects of treatment? @ -No Exacerbation, Progression, or Severe Exacerbation? @ -No Poses a threat to life or bodily function? How? (Chest pain, [place], MA, pneumonia, PE, COPD, DKA, ARF, appy, cholecystitis, CVA, Diverticulitis, Homicidal, Suicidal, threat to staff... and all critical care pts) @ -yes chest pain possible acs Disposition Clinical Impression: Chest pain Disposition: ADMITTED IP TO THIS HOSP Condition: Fair Time of Disposition: 12:39
[2024-02-22] MEDS: ASPIRIN 81 MG PO STA (10:30)
[2024-02-22] MEDS: NITROGLYCERIN SL TABS 0.4 MG TAB SUBLINGUAL STA (10:31)
[2024-02-22 10:49] LABS: ALT 14 U/L (4-49); AST 17 U/L (17-59); African American GFR (CKD) >90 (>60 ml/min/1.73 sqM); Albumin 3.6 g/dL (3.5-5.0); Alkaline Phosphatase 61 U/L (38-126); Anion Gap 2 mmol/L; Blood Urea Nitrogen 12 mg/dL (9-20); Calcium 8.8 mg/dL (8.4-10.2); Carbon Dioxide 24 mmol/L (22-30); Chloride 107 mmol/L (98-107); Glucose 201 mg/dL (74-99); Magnesium 1.8 mg/dL (1.6-2.3); Non-African American GFR(CKD) >90 (>60 ml/min/1.73 sqM); Potassium 4.4 mmol/L (3.5-5.1); Sodium 133 mmol/L (137-145); Total Bilirubin 0.3 mg/dL (0.2-1.3); Total Protein 6.1 g/dL (6.3-8.2)
[2024-02-22 10:51] LABS: Basophils # (A) 0.1 k/uL (0-0.2); Basophils % (A) 1 %; Eosinophils # (A) 0.2 k/uL (0-0.7); Eosinophils % (A) 3 %; HCT 41.2 % (39.0-53.0); HGB 14.5 gm/dL (13.0-17.5); Lymphocytes # (A) 2.4 k/uL (1.0-4.8); Lymphocytes % (A) 34 %; MCHC 35.1 g/dL (31.0-37.0); MCV 94.1 fL (80.0-100.0); Mean Platelet Volume 6.8; Monocytes # (A) 0.4 k/uL (0-1.0); Monocytes % (A) 6 %; Neutrophils # (A) 3.9 k/uL (1.3-7.7); Neutrophils % (A) 55 %; Platelet Count 268 k/uL (150-450); RBC 4.38 m/uL (4.30-5.90); RDW 12.9 % (11.5-15.5); WBC 7.2 k/uL (3.8-10.6)
[2024-02-22 10:57] LABS: NT-Pro-B-Type Natriuretic Pept 49 pg/mL
[2024-02-22 10:59] LABS: INR 0.9 (<1.2); Partial Thromboplastin Time 25.4 sec (22.0-30.0); Prothrombin Time 10.3 sec (10.0-12.5)
--- NOTE | 2024-02-22 11:51 | XR ---
EXAMINATION TYPE: XR chest 2V DATE OF EXAM: 02/22/2024 10:41 AM CLINICAL INDICATION:Male, 73 years old with history of Chest Pain; [facility] COMPARISON: 07/09/2018 TECHNIQUE: XR chest 2V. Frontal and lateral views of the chest.. FINDINGS: Lines/Tubes/Devices: EKG leads overlie the chest. No indwelling lines are seen. Heart/mediastinum: Heart size is normal. Mediastinum appears normal. Pulmonary vascularity: Not increased, Lungs/Pleura: There is no evidence of pleural effusion, focal consolidation, or pneumothorax. Musculoskeletal: No acute osseous abnormality demonstrated in the limits of the exam. Surgical ancho rs noted in the bilateral humeral heads. Other findings: None. IMPRESSION: No acute cardiopulmonary abnormality.
[2024-02-22] MEDS ORDERED: NITROGLYCERIN SL TABS 0.4 MG TAB SUBLINGUAL PRN (12:38)
[2024-02-22] MEDS ORDERED: ACETAMINOPHEN TAB 325 MG TAB PO PRN (13:04)
[2024-02-22] MEDS: NITROGLYCERIN OINT 1 INCH/GM PACKET TOPICAL SCH (13:05)
[2024-02-22] MEDS ORDERED: DEXTROSE 50% SYRINGE 50 ML IVP PRN ×2 (13:10)
--- NOTE | 2024-02-22 13:12 | P.HPIM ---
History of Present Illness H&P Date: 02/22/24 History of present illness: 73-year-old male patient with past medical history significant for diabetes mellitus, hypertension, hyperlipidemia, history of coronary artery disease status post stenting many years ago, history of stroke, former smoker who presented to ED with a complaint of chest pain. Patient stated that he has been having on and off stabbing pressure-like chest discomfort going on since . Patient reported that it gets worse with exertion, is intermittent, lasting 5 to 15 minutes, nonradiating, denied any associated shortness of breath nausea or diaphoresis. 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 Patient denied any fever, chills, sore throat, productive cough, palpitations, dizziness, nausea vomiting diarrhea constipation abdominal pain dysuria urgency frequency weakness or numbness of the extremities. In the ED patient was afebrile, heart rate 67, respiratory rate 18, blood pressure 104/71, saturating 97% on room air. CBC was unremarkable. INR 0.9. BMP was also unremarkable with creatinine 0.74, GFR more than 90, BUN 12, sodium is mildly low 133. Glucose was 201. Initial troponin was negative. EKG was negative for acute changes. Chest x-ray negative for acute process. REVIEW OF SYSTEMS: CONSTITUTIONAL: No fever, no malaise, no fatigue. HEENT: No recent visual problems or hearing problems. Denied any sore throat. CARDIOVASCULAR: No orthopnea, PND, no palpitations, no syncope. PULMONARY: No shortness of breath, no cough, no hemoptysis. GASTROINTESTINAL: No diarrhea, no nausea, no vomiting, no abdominal pain. NEUROLOGICAL: No headaches, no weakness, no numbness. HEMATOLOGICAL: Denies any bleeding or petechiae. GENITOURINARY: Denies any burning micturition, frequency, or urgency. MUSCULOSKELETAL/RHEUMATOLOGICAL: Denies any joint pain, swelling, or any muscle pain. ENDOCRINE: Denies any polyuria or polydipsia. The rest of the 14-point review of systems is negative. PHYSICAL EXAMINATION: GENERAL: A&O x3, NAD HEENT: EOMI, Sclerae anicteric, Moist Mucous membranes Neck: Supple, Non tender, No JVD PULMONARY: Equal breath souds B/L, No wheezing, No crackles. CARDIOVASCULAR: S1, S2 present. Systolic murmurs, rubs, or gallops. ABDOMEN: Soft, nontender, nondistended, normoactive bowel sounds. No guarding or rebound tenderness. MUSCULOSKELETAL: No edema, No cyanosis. No clubbing. Normal ROM. Intact peripheral pulses. EXTREMITIES: No cyanosis, clubbing, or pedal edema. Skin: Warm. No Rash Assessment and plan: Chest pain: History of CAD and PCI: Hypertension Hyperlipidemia: Patient presented with chest pain which is intermittent. Initial EKG and troponin negative. Monitor with serial EKG and troponin. Echocardiogram. Aspirin, statin. Nitroglycerin Telemetry Cardiology consult. Diabetes mellitus: Accu-Cheks, diabetic diet. Hold metformin Sliding scale insulin. DVT prophylaxis Subcutaneous Lovenox Monitor vital signs and labs Continue telemetry monitoring Labs and medication were reviewed. Continue same treatment. Resume home medication. Further recommendations as per clinical course of the patient Dictation was produced using c-crowd dictation software. please excuse any grammatical, word or spelling errors. Past Medical History Past Medical History: Coronary Artery Disease (CAD), CVA/TIA, Diabetes Mellitus, GERD/Reflux, Hyperlipidemia, Hypertension, Musculoskeletal Disorder Additional Past Medical History / Comment(s): NIDDM type II, chronic low back pain History of Any Multi-Drug Resistant Organisms: None Reported Past Surgical History: Back Surgery, Heart Catheterization With Stent, Orthopedic Surgery, Tonsillectomy Additional Past Surgical History / Comment(s): left and right rotator cuff, LOWER BACK LASER SX(NERVES BURNED), multiple pain procedures on back Past Anesthesia/Blood Transfusion Reactions: No Reported Reaction Date of Last Stent Placement:: 05/23/11 Past Psychological History: Depression Smoking Status: Former smoker Past Alcohol Use History: None Reported Past Drug Use History: Marijuana - Past Family History Father Family Medical History: Dementia Additional Family Medical History / Comment(s): AT AGE 78 COMPLICATIONS FROM ALZHIEMERS Mother Family Medical History: Dementia Additional Family Medical History / Comment(s): AT AGE 90'S from dementia. Medications and Allergies Home Medications Medication Instructions Recorded Confirmed Type Aspirin 325 mg PO DAILY 02/22/24 02/22/24 History Atorvastatin (Unknown Dose) 0.5 tab PO HS 02/22/24 02/22/24 History Metformin (Unknown Dose) 1 tab PO BID 02/22/24 02/22/24 History QUEtiapine FUMARATE [SEROquel] 300 mg PO HS 02/22/24 02/22/24 History Venlafaxine HCl ER [Effexor Xr] 225 mg PO DAILY 02/22/24 02/22/24 History Allergies Allergy/AdvReac Type Severity Reaction Status Date / Time No Known Allergies Allergy Verified 02/22/24 12:43 Physical Exam Vitals: Vital Signs Temp Pulse Resp BP Pulse Ox 02/22/24 10:30 75 18 98 02/22/24 09:57 97.4 F L 67 18 104/71 97 Intake and Output 02/21/24 02/22/24 02/22/24 22:59 06:59 14:59 Other: Weight 85.729 kg Results CBC & Chem 7: 02/22/24 10:24 02/22/24 10:24 Labs: Abnormal Lab Results - Last 24 Hours (Table) 02/22/24 Range/Units 10:24 Sodium 133 L (137-145) mmol/L Glucose 201 H (74-99) mg/dL Total Protein 6.1 L (6.3-8.2) g/dL
[2024-02-22] MEDS: VENLAFAXINE HCL ER 75 MG CAP PO SCH (14:03)
[2024-02-22] MEDS: INSULIN ASPART (NovoLOG) 100 UNIT/ML VIAL SQ SCH (17:14)
[2024-02-22] MEDS ORDERED: HYDROcodone/APAP 5-325MG 1 EACH TAB PO PRN (17:28)
[2024-02-22] MEDS: HYDROmorphone 0.5 MG/0.5 ML SYRINGE IVP PRN (17:37)
[2024-02-22 20:14] LABS: Glucose,Whole Blood 155 mg/dL (70-110)
[2024-02-22] MEDS: ATORVASTATIN 40 MG TAB PO SCH (21:37)
[2024-02-22] MEDS: QUEtiapine 100 MG TAB PO SCH (21:37)
--- NOTE | 2024-02-23 00:53 | CT ---
EXAMINATION TYPE: CT angio chest CT DLP: 417.7 mGycm, Automated exposure control for dose reduction was used. DATE OF EXAM: 02/22/2024 9:14 PM COMPARISON: Chest x-ray 02/22/2024 CLINICAL INDICATION:Male, 73 years old with history of ro pe chest pain; chest pain TECHNIQUE/CONTRAST: CTA scan of the thorax is performed with IV Contrast, patient injected with 80cc mL of Isovue 370, KS P images are created and reviewed these are created on a separate workstation.. FINDINGS: There is adequate contrast bolus and timing. PULMONARY ARTERIES: There is no evidence for a filling defect within the pulmonary vasculature to sug gest acute pulmonary embolism. Pulmonary trunk is upper limits of normal in size measuring 2.8 cm tra nsverse. Right and left pulmonary arteries are also prominent. Developing pulmonary hypertension cons idered. AORTA: Moderate calcification of the aortic valve. Mild to moderate atherosclerotic calcifications o f the more distal aorta and branches. Ascending aorta is 3.3 CM, descending is 2.8 CM. HEART: Normal heart size. Moderate bilateral coronary artery calcification and/or stents, greatest in the LAD. LOWER NECK: No significant findings. Thyroid does not appear in the [id number]. MEDIASTINUM: No enlarged mediastinal nodes by CT size criteria. Mildly prominent mediastinal nodes, likely reactive. Moderate to large hiatal hernia with a portion of the stomach extending intrathoraci c. SOFT TISSUES/AXILLA: Mild bilateral gynecomastia like changes. No chest wall mass or axillary adenopa thy. LUNGS/ PLEURA: Lungs show mild upper lobe emphysematous changes. Scattered scarring/senescent changes bilaterally without evidence of acute infiltrate or consolidation. Minor gravity dependent atelectas is. No pleural effusion or pneumothorax. AIRWAY: Central airways are patent. MUSCULOSKELETAL: No acute osseous abnormality. Mild disc degeneration changes are present throughout the included thoracolumbar spine. UPPER ABDOMEN: No mass of the visualized adrenals. Punctate renal calculi. Partially seen mild ectasi a of the infrarenal abdominal aorta. IMPRESSION: 1. No evidence of pulmonary embolism. 2. No other acute chest process demonstrated. 3. Other chronic and likely incidental findings, as described above.
[2024-02-23 05:24] LABS: Glucose,Whole Blood 107 mg/dL (70-110)
[2024-02-23 07:22] VITALS: BP 117/57; PULSE 66; RESP 16; TEMP 98.1
[2024-02-23] MEDS ORDERED: ASPIRIN 325 MG TAB PO SCH (09:00)
[2024-02-23] MEDS ORDERED: ENOXAPARIN 40 MG/0.4 ML SYRINGE SQ SCH (09:00)
[2024-02-23 12:21] LABS: Glucose,Whole Blood 120 mg/dL (70-110)
[2024-02-23] MEDS ORDERED: ASPIRIN 325 MG TAB ONE (14:41)
[2024-02-23] MEDS ORDERED: ENOXAPARIN 40 MG/0.4 ML SYRINGE SQ ONE (14:41)
--- NOTE | 2024-03-12 15:51 | DS ---
DISCHARGE SUMMARY The patient is a 73-year-old male with known history of coronary artery disease and stents in the past. Came in with complaints of chest pain on the left side of the chest, sharp in nature and reproducible in nature. Patient denies any lightheadedness. The patient's chest pain is nonpleuritic, not associated with food and the patient is n.p.o. at this time. Patient will undergo stress test today. The patient's troponins are negative. EKGs did not show any acute ST-T wave changes, although not possible intervention is available because of the problem with IT at this hospital at this point of time. PAST MEDICAL HISTORY: Coronary artery disease. No other past medical history is known at this time. PRESENT HOME MEDICATIONS: Include aspirin, atorvastatin, Seroquel, venlafaxine, metformin. The patient is presently on same medications as above. SOCIAL HISTORY: Not available at this time. PHYSICAL EXAMINATION: VITAL SIGNS: Temperature afebrile 97.7, pulse of 76, respiratory rate of 18, blood pressure 132/75. Head: Normocephalic, atraumatic. Neck: Supple, thyroid gland is not enlarged, no JVP is noted, no lymphadenopathy noted. ENT: No foci of infection. Eyes: KRIS, external eye movements are normal, conjunctivae are pink. Lungs: Clear to auscultation bilaterally. Heart: S1, S2 can be heard, no gallops, rubs, or murmurs. Abdomen: Soft, nontender, no organomegaly, bowel sounds are heard in all four quadrants. Extremities: No cyanosis, clubbing, or edema, peripheral pulses are palpable. Cranial Nerves II to XII are intact. MECHANIC AND WELDER: There are no gross sensory or motor deficits, DTRS 2+ bilaterally. Musculoskeletal: Muscle strength is symmetrical. ASSESSMENT AND PLAN: 1. Chest pain, rule out acute coronary syndrome. The patient undergoes stress test that is negative, patient will be discharged today. -type 2 diabetes mellitus. -hypertension. -depression. For above mentioned chronic medical problems, the patient will be resumed on appropriate home medications. MMODL / IJN: [id number] /
== END 2024-02-23 13:00 | disposition home or self-care (01) ==
LOC: EC 09:57 → 6NMEDSUR 13:31
PROVIDERS: ADMIT Internal Medicine; ATTEND Internal Medicine
DX: R07.9 Chest pain, unspecified (principal); I10 Essential (primary) hypertension; E78.5 Hyperlipidemia, unspecified; E11.9 Type 2 diabetes mellitus without complications; I25.10 Atherosclerotic heart disease of native coronary artery without angina pectoris; K21.9 Gastro-esophageal reflux disease without esophagitis; F32.A Depression, unspecified; I25.2 Old myocardial infarction; Z86.73 Personal history of transient ischemic attack (TIA), and cerebral infarction without residual deficits; Z95.5 Presence of coronary angioplasty implant and graft; Z79.82 Long term (current) use of aspirin; Z79.84 Long term (current) use of oral hypoglycemic drugs; Z79.899 Other long term (current) drug therapy
CPT/HCPCS: 36415; 93005; 85379; 83880; 80053; 83735; 84484; 85025; 85610; 85730; 71046; 71275; J1170; Q9967; 80061; 83036; 93306; 94760; 96374; 99285

== ENCOUNTER 2024-03-09 04:26 | Emergency (ER) | payer MEDICARE | END 2024-03-09 05:50 | disposition home or self-care (01) | LOC: EC 04:26 | DX: B02.9 Zoster without complications (principal) | CPT/HCPCS: 93005 ==